=== PATIENT | female | born 1945 | race Caucasian/White ===

== ENCOUNTER 2017-08-30 19:00 | Emergency (ER) | payer MEDICARE, BC ==
--- NOTE | 2017-08-30 19:25 | EDM.PDOC ---
ED HPI GENERAL MEDICAL PROBLEM - General Chief Complaint: Skin Complaint Stated Complaint: PAIN LT MIDDLE FINGER Time Seen by Provider: 08/30/17 19:06 - History of Present Illness INITIAL COMMENTS - FREE TEXT/NARRATIVE: HISTORY AND PHYSICAL: History of present illness: Patient 72-year-old white female presents with a concern of intermittent pruritus over one month she's been seen in a [facility] urgent care and prescribed Keflex she has not taken Benadryl or any other antihistamines she denies tongue or lip Swelling nausea vomiting shortness breath or any other complaint This pruritus/ rash is somewhat diffuse. Review of systems: As per history of present illness and below otherwise all systems reviewed and negative. Past medical history: As per history of present illness and as reviewed below otherwise noncontributory. Surgical history: As per history of present illness and as reviewed below otherwise noncontributory. Social history: No reported history of drug or alcohol abuse. Family history: As per history of present illness and as reviewed below otherwise noncontributory. Physical exam: HEENT: Atraumatic, normocephalic, pupils reactive, negative for conjunctival pallor or scleral icterus, mucous membranes moist, throat clear, neck supple, nontender, trachea midline. Lungs: Clear to auscultation, breath sounds equal bilaterally, chest nontender. Heart: S1S2, regular, negative for clicks, rubs, or JVD. Abdomen: Soft, nondistended, nontender. Negative for masses or hepatosplenomegaly. Negative for costovertebral tenderness. Pelvis: Stable nontender. Genitourinary: Deferred. Rectal: Deferred. Extremities: Atraumatic, negative for cords or calf pain. Neurovascular unremarkable. Neuro: Awake, alert, oriented. Cranial nerves II through XII unremarkable. Cerebellum unremarkable. Motor and sensory unremarkable throughout. Exam nonfocal. Skin: Patient has very diffuse minor maculopapular type rash or small areas that appear urticarial patient is itching frequently Diagnostics: CBC and chem[] Therapeutics: None Impression: #1 pruritus/rash etiology to be determined Definitive disposition and diagnosis as appropriate pending reevaluation and review of above. ED ROS GENERAL - Review of Systems Review Of Systems: ROS reveals no pertinent complaints other than HPI. ED EXAM, SKIN/RASH Exam: See Below (See dictation) Course - Orders/Labs/Meds Orders: Active Orders 24 hr Category Date Time Status CBC WITH AUTO DIFF [HEME] Stat Lab 08/30/17 19:13 Ordered COMPREHENSIVE METABOLIC PN,CMP [CHEM] Stat Lab 08/30/17 19:16 Ordered Departure - Departure Time of Disposition: 19:24 Disposition: Home, Self-Care 01 Condition: Good Clinical Impression: Pruritus, Rash - Discharge Information Referrals: Cesia Dewitt DO [Primary Care Provider] - Additional Instructions: The following information is given to patients seen in the emergency department who are being discharged to home. This information is to outline your options for follow-up care. We provide all patients seen in our emergency department with a follow-up referral. The need for follow-up, as well as the timing and circumstances, are variable depending upon the specifics of your emergency department visit. If you don't have a primary care physician on staff, we will provide you with a referral. We always advise you to contact your personal physician following an emergency department visit to inform them of the circumstance of the visit and for follow-up with them and/or the need for any referrals to a consulting specialist. The emergency department will also refer you to a specialist when appropriate. This referral assures that you have the opportunity for followup care with a specialist. All of these measure are taken in an effort to provide you with optimal care, which includes your followup. Under all circumstances we always encourage you to contact your private physician who remains a resource for coordinating your care. When calling for followup care, please make the office aware that this follow-up is from your recent emergency room visit. If for any reason you are refused follow-up, please contact the [facility] emergency department at and asked to speak to the emergency department charge nurse. Benadryl Medrol as prescribed keep scheduled appointment tomorrow dermatology referral return as needed as discussed - My Orders Last 24 Hours: My Active Orders 08/30/17 19:13 CBC WITH AUTO DIFF [HEME] Stat 08/30/17 19:16 COMPREHENSIVE METABOLIC PN,CMP [CHEM] Stat - Assessment/Plan Last 24 Hours: My Active Orders 08/30/17 19:13 CBC WITH AUTO DIFF [HEME] Stat 08/30/17 19:16 COMPREHENSIVE METABOLIC PN,CMP [CHEM] Stat
[2017-08-30 19:53] LABS: CHLORIDE,CL 101 mmol/L (98-107); SODIUM,NA 133 mmol/L (136-145)
== END 2017-08-30 20:13 | disposition home or self-care (01) ==
LOC: MW.ED 19:00
DX: L29.9 Pruritus, unspecified (principal)
CPT/HCPCS: 36415; 80053; 85025; 99283

== ENCOUNTER 2018-07-17 06:15 | Day surgery (SDC) | payer MEDICARE, BC ==
[2018-07-16 13:36] LABS: CHLORIDE,CL 100 mmol/L (98-107); SODIUM,NA 136 mmol/L (136-145)
--- NOTE | 2018-07-17 07:55 | PCM.PREANE ---
Preanesthetic Assessment - Anesthesia/Transfusion/Family Hx Anesthesia History: Prior Anesthesia Without Reaction Family History of Anesthesia Reaction: No Transfusion History: No Prior Transfusion(s) - Review of Systems General: No Symptoms Pulmonary: No Symptoms Cardiovascular: No Symptoms Gastrointestinal: No Symptoms Neurological: No Symptoms - Physical Assessment NPO Status Date: 07/16/18 Height: 5 ft 3 in Weight: 72.575 kg ASA Class: 2 Mental Status: Other (doesnt know why she is here, thinks she may be having a colonoscopy, reports progerssive memory problems with agitation at home. Pt still has own controll over consents.After speaking with [place] she seems to understand what procedure she is having , the reasons for it, and the likely post op course.) - Lab Values: Laboratory Last Values WBC 3.75 K/uL (4.0-11.0) L 07/16/18 12:57 RBC 3.89 M/uL (4.30-5.90) L 07/16/18 12:57 Hgb 12.2 g/dL (12.0-16.0) 07/16/18 12:57 Hct 34.8 % (36.0-46.0) L 07/16/18 12:57 MCV 89.5 fL (80.0-98.0) 07/16/18 12:57 MCH 31.4 pg (27.0-32.0) 07/16/18 12:57 MCHC 35.1 g/dL (31.0-37.0) 07/16/18 12:57 RDW Std Deviation 41.1 fl (28.0-62.0) 07/16/18 12:57 RDW Coeff of Elvira 13 % (11.0-15.0) 07/16/18 12:57 Plt Count 278 K/uL (150-400) 07/16/18 12:57 MPV 8.70 fL (7.40-12.00) 07/16/18 12:57 Nucleated RBC % 0.0 /100WBC 07/16/18 12:57 Nucleated RBCs # 0 K/uL 07/16/18 12:57 Sodium 136 mmol/L (136-145) 07/16/18 12:57 Potassium 3.8 mmol/L (3.5-5.1) 07/16/18 12:57 Chloride 100 mmol/L (98-107) 07/16/18 12:57 Carbon Dioxide 27.8 mmol/L (21.0-32.0) 07/16/18 12:57 BUN 8 mg/dL (7.0-18.0) 07/16/18 12:57 Creatinine 0.7 mg/dL (0.6-1.0) 07/16/18 12:57 Est Cr Clr Drug Dosing 60.09 mL/min 07/16/18 12:57 Estimated GFR (MDRD) > 60.0 ml/min 07/16/18 12:57 Glucose 107 mg/dL (74-106) H 07/16/18 12:57 Calcium 9.5 mg/dL (8.5-10.1) 07/16/18 12:57 Blood Type A POSITIVE 07/16/18 12:57 Antibody Screen NEGATIVE 07/16/18 12:57 - Allergies Allergies/Adverse Reactions: Allergies Allergy/AdvReac Type Severity Reaction Status Date / Time No Known Allergies Allergy Verified 07/12/18 09:47 - Acknowledgements Anesthesia Type Planned: Spinal Pt an Appropriate Candidate for the Planned Anesthesia: Yes Alternatives and Risks of Anesthesia Discussed w Pt/Guardian: Yes Pt/Guardian Understands and Agrees with Anesthesia Plan: Yes Additional Comments: pt requests spinal PMH: early dementia, htn, hld, migraine, gerd, 1st degree ht block per problem list. PreAnesthesia Questionnaire HEENT History: Reports: Other (See Below) Other HEENT History: wears glasses Cardiovascular History: Reports: High Cholesterol, Hypertension Respiratory History: Reports: None Gastrointestinal History: Reports: GERD Genitourinary History: Reports: None [employer] SPECIALIST History: Reports: Musculoskeletal History: Reports: Fracture Other Musculoskeletal History: fx toe Neurological History: Reports: Migraines Psychiatric History: Reports: Depression Endocrine/Metabolic History: Reports: None Hematologic History: Reports: None Immunologic History: Reports: None Oncologic (Cancer) History: Reports: None Dermatologic History: Reports: None - Past Surgical History Head Surgeries/Procedures: Reports: None HEENT Surgical History: Reports: Oral Surgery Other HEENT Surgeries/Procedures: wisdom teeth extraction GI Surgical History: Reports: Colonoscopy Female Surgical History: Reports: Breast Biopsy, Tubal Ligation Neurological Surgical History: Reports: None Oncologic Surgical History: Reports: Biopsy of Breast - SUBSTANCE USE Smoking Status *Q: Former Smoker Recreational Drug Use History: No - HOME MEDS Home Medications: Home Meds Rosuvastatin [Crestor] 5 mg PO BEDTIME 08/30/17 [History] Olmesartan [Benicar] 20 mg PO DAILY 05/30/18 [History] hydroCHLOROthiazide [Hydrochlorothiazide] 25 mg PO DAILY 05/30/18 [History] Aspirin [Adult Aspirin] 81 mg PO DAILY 07/11/18 [History] Nitroglycerin 0.4 mg SL ASDIRECTED PRN 07/11/18 [History] [place]-3/DHA/Epa/Fish Oil [Fish Oil EC 1,000 MG Softgel] 1 tab PO DAILY 07/11/18 [History] Pantoprazole Sodium 40 mg PO DAILY 07/11/18 [History] Cholecalciferol (Vitamin D3) [Vitamin D3] 2,000 units PO DAILY 07/12/18 [History ] Desvenlafaxine [Desvenlafaxine ER] 50 mg PO DAILY 07/12/18 [History] Docusate Sodium [Stool Softener] 2 tab PO DAILY 07/12/18 [History] Keto 2 tab PO DAILY 07/12/18 [History] L.acidoph,Paracasei, B.lactis [Probiotic] 1 tab PO DAILY 07/12/18 [History] Multivits Min/Iron/FA/Herb#186 [Hair, Skin and Nails Caplet] 1 tab PO DAILY 11/23 [History] Unforgetables/Herbal 1 tab PO DAILY 07/12/18 [History] - CURRENT (IN HOUSE) MEDS Current Meds: Current Medications Lactated Ringer's (Ringers, Lactated) 1,000 mls @ 125 mls/hr IV ASDIRECTED MOHSEN
[2018-07-17] MEDS ORDERED: Dexamethasone 4 MG/ML 5 ML MDV ONE (07:58)
[2018-07-17] MEDS ORDERED: Ondansetron 4 MG/2 ML SDV ONE (07:58)
[2018-07-17] MEDS ORDERED: Ketorolac 30 MG/ML SDV ONE (07:58)
[2018-07-17] MEDS ORDERED: Lidocaine 2% 5 ML SDV ONE (07:58)
[2018-07-17] MEDS ORDERED: fentaNYL 100 MCG/2 ML SDV ONE ×2 (07:58→08:11)
[2018-07-17] MEDS ORDERED: Midazolam 1 MG/ML 2 ML SDV ONE (07:59)
[2018-07-17] MEDS: Lactated Ringers 1,000 ML IV SCH ×2 (08:00→16:53)
[2018-07-17] MEDS ORDERED: Propofol 200 MG/20 ML SDV ONE (08:01)
[2018-07-17] MEDS ORDERED: Acetaminophen/HYDROcodone 325-5 MG Tab PO PRN (08:40)
[2018-07-17] MEDS ORDERED: Morphine 4 MG/ML Syringe IVPUSH PRN ×2 (08:40→10:14)
[2018-07-17] MEDS ORDERED: Promethazine 25 MG/ML SDV IM PRN ×2 (08:40→10:14)
[2018-07-17] MEDS ORDERED: Albuterol 0.083% 2.5 MG/3 ML Neb Soln NEB PRN (08:40)
[2018-07-17] MEDS ORDERED: fentaNYL 100 MCG/2 ML SDV IVPUSH PRN (08:40)
[2018-07-17] MEDS ORDERED: Scopolamine 1.5 MG Transdermal Patch TRDERM PRN (08:40)
[2018-07-17] MEDS ORDERED: Labetalol 100 MG/20 ML MDV IVPUSH PRN (08:40)
[2018-07-17] MEDS ORDERED: Naloxone 0.4 MG/ML Syringe IVPUSH PRN (08:40)
[2018-07-17] MEDS ORDERED: Ondansetron 4 MG/2 ML SDV IVPUSH PRN ×2 (08:40→10:14)
[2018-07-17] MEDS ORDERED: Atropine 0.1 MG/ML 10 ML Syringe IVPUSH PRN (08:40)
[2018-07-17] MEDS ORDERED: Metoclopramide 10 MG/2 ML SDV IVPUSH PRN (08:40)
[2018-07-17] MEDS ORDERED: Meperidine PF 25 MG/ML Syringe IVPUSH PRN (08:40)
[2018-07-17] MEDS ORDERED: hydrALAZINE 20 MG/ML SDV IVPUSH PRN ×2 (08:40)
[2018-07-17] MEDS ORDERED: HYDROmorphone 2 MG/ML SDV IVPUSH PRN (08:40)
[2018-07-17] MEDS ORDERED: Meperidine PF 25 MG/ML Syringe IV PRN (08:40)
[2018-07-17] MEDS ORDERED: Fluorescein 5 ML Vial ONE (09:34)
[2018-07-17] MEDS ORDERED: Ketorolac 30 MG/ML SDV IVPUSH ONE (10:14)
[2018-07-17] MEDS ORDERED: Acetaminophen 325 MG Tab PO PRN (10:14)
--- NOTE | 2018-07-17 10:14 | PCM.OPNOTE ---
- General Post-Op/Procedure Note Date of Surgery/Procedure: 07/17/18 Operative Procedure(s): TVH anterior and posterior colporrhaphy, perineorrhaphy , De Souza Culdoplasty, cystoscopy Findings: 3rd degree uterine prolapse, 3rd degree cystocele, gaping introitus, copious flow bright green urine on cystoscopy after fluroscein, normal appearing tubes and ovaries Pre Op Diagnosis: Incomplete uterovaginal prolapse Post-Op Diagnosis: Same Anesthesia Technique: Spinal Primary Surgeon: Bryanna Gutiérrez Secondary Surgeon: Azucena Rick (second assist Azucena Mcfadden, MS4) Anesthesia Provider: Ti Whittington Shirt Marker: Marc Claudio Pathology: uterus, vaginal mucosa Output, Urine Amount: 250 EBL in mLs: 100 Drain/Tube Comments:: vaginal packing in place Complications: None Known Condition: Good
--- NOTE | 2018-07-17 11:10 | PCM.POSTAN ---
POST ANESTHESIA ASSESSMENT - MENTAL STATUS Mental Status: Alert, Oriented - RESPIRATORY Respiratory Status: Respiratory Rate WNL, Airway Patent, O2 Saturation Stable - CARDIOVASCULAR CV Status: Pulse Rate WNL, Blood Pressure Stable - GASTROINTESTINAL GI Status: No Symptoms - POST OP HYDRATION Hydration Status: Adequate & Stable
[2018-07-17] MEDS: oxyCODONE 5 MG Tab PO PRN ×2 (12:26→20:07)
[2018-07-17] MEDS: Pantoprazole 40 MG Tab.CR PO SCH (12:27)
[2018-07-17] MEDS: Olmesartan 20 MG Tab PO SCH (12:27)
[2018-07-17] MEDS: DESVENLAFAXINE 50 MG PO SCH (12:31)
[2018-07-17] MEDS: Ketorolac 30 MG/ML SDV IVPUSH SCH ×3 (12:32→23:26)
--- NOTE | 2018-07-17 19:03 | OR ---
SURGEON: Bryanna Gutiérrez M.D. DATE OF PROCEDURE: 07/17/2018 PREOPERATIVE DIAGNOSIS: Incomplete uterovaginal prolapse with urinary retention. POSTOPERATIVE DIAGNOSIS: Incomplete uterovaginal prolapse with urinary retention. PROCEDURES: Total vaginal hysterectomy, anterior and posterior colporrhaphy with De Souza culdoplasty, perineorrhaphy, and cystoscopy. CRM SPECIALIST: Azucena Rick M.D. SECOND CRM SPECIALIST: Peri Hassan, MS4. ANESTHESIA: Spinal. ESTIMATED BLOOD LOSS: Less than 100 mL. FINDINGS: Third-degree uterine prolapse, third-degree cystocele, second-degree rectocele, gaping perineum on cystoscopy. There was no evidence of any trauma to the bladder mucosa. Bilateral ureters showed copious flow of bright green urine after fluorescein dye was given. COMPLICATIONS: None known. DISPOSITION: Stable to recovery. BRIEF HISTORY: This is a 72-year-old female, she presents with symptoms of difficulty initiating voiding, pelvic pressure, feeling a bulge at the opening of her vagina which is very uncomfortable for her. She was evaluated initially, found to have urinary retention up to 400 mL. She was evaluated with cystometry with reduction of the cystocele. This did reveal stress incontinence. After extensive discussion, however, we decided that we would not proceed with a mid urethral sling at the time of prolapse repair to see how she does with urinary emptying as she has in the past had retention. She has therefore consented for a total vaginal hysterectomy, anterior and posterior colporrhaphy, perineorrhaphy, possible vaginal vault suspension, and cystoscopy with risks discussed including bleeding, infection, injury to bowel, bladder, blood vessels, ureters, or other organs, risk of thromboembolic event, risk of anesthesia. Understanding all these risks, she does desire to proceed. She was previously offered and declined a pessary as well. DESCRIPTION OF PROCEDURE: With the patient in dorsal lithotomy position, under adequate general endotracheal anesthesia, the perineum and vagina were prepped with Betadine and draped in usual fashion for vaginal surgery. Biswas catheter had been placed. SCDs were in place. She received 2 g of Ancef IV. After an appropriate time- out was held, examination revealed a third-degree uterine prolapse, third-degree cystocele, and gaping introitus. A speculum was placed posteriorly and right angle retractor was placed anteriorly. The cervix was grasped with a Phan tenaculum, circumscribed with electrocautery. The vaginal mucosa was pushed away from the cervix and the anterior cul-de-sac was entered sharply. A right- angle retractor was placed anteriorly, the posterior cul-de-sac was entered sharply. A Juan Carlos Auvard speculum was placed posteriorly. The uterosacral ligaments were doubly clamped, cut, and ligated using a Manny ligature followed by simple ligature of 2-0 Polysorb. An additional pedicle was taken over the cardinal ligament complex using a Manny clamp, cutting and ligating using Rajan ligature of 2-0 Polysorb. The remaining utero-ovarian ligament was then cross clamped on the right and left, cut and ligated using a free tie followed by a Rajan ligature of 2-0 Polysorb. The uterus was removed vaginally. The tubes and ovaries on both sides appeared normal. She did desire to retain her tubes and ovaries. The pedicles were inspected and there was a small area of bleeding from the vascular pedicle on the left. This was controlled using a Manny clamp and an additional Rajan ligature of 2-0 Polysorb. The pedicles all being hemostatic. The retained uterosacral ligaments were ligated to the vaginal apices bilaterally. There was actually excellent support of the uterosacral ligaments bilaterally and therefore decision was made not to proceed with a vaginal vault suspension. The anterior vaginal cuff was then grasped with Allis clamps. Hydrodissection was performed. Metzenbaum scissors were used to make a midline incision from the cuff to the level of 2.5 cm cephalad from the urethral meatus. The muscularis layer was then from the overlying vaginal mucosa and reapproximated in the midline using a running lock suture of 0 Polysorb. The vaginal mucosa was slightly trimmed. The muscularis was reapproximated in the midline using multiple interrupted mattress sutures of 2-0 Polysorb. The muscularis layer was then trimmed and reapproximated using a running lock suture of 0 Polysorb. The right angle retractor was again placed anteriorly. Andrew clamps were placed at the introitus and a triangular incision was made using a scalpel into the perineal body and the skin was removed. Hydrodissection was performed posteriorly between the vaginal mucosa, which was then opened in the midline. The muscularis layer was and reapproximated using multiple interrupted mattress sutures of 2-0 Polysorb. The vaginal mucosa was slightly trimmed and closed with a running lock suture of 0 Polysorb, extending down to the vaginal introitus and then bringing the suture to the perineum where the deep tissue was reapproximated using a running suture of the 0 Polysorb. 3-0 Monocryl was then utilized to reapproximate the superficial perineal tissue and a subcuticular suture for the skin. The retained cuff closure suture was then utilized to complete the closure of the cuff anteriorly posteriorly. With this, there was excellent support of the cuff of the anterior and the posterior vagina. Rectal exam was performed, and there was no evidence of any trauma or suture in the rectal mucosa and cystoscopy was performed after IV fluorescein and Lasix had been given. There was copious flow from bilateral ureteral orifices. No evidence of any trauma to the bladder mucosa. The Biswas catheter was replaced. The vagina was packed. Final sponge, needle, and instrument counts were reported as correct. There were no known complications. The patient was transferred to recovery in good condition. BETH RAZO /[id number]
[2018-07-18] MEDS: Lactated Ringers 1,000 ML IV SCH (01:00)
[2018-07-18] MEDS: Ketorolac 30 MG/ML SDV IVPUSH SCH ×2 (03:55→09:41)
[2018-07-18 06:12] LABS: CHLORIDE,CL 102 mmol/L (98-107); SODIUM,NA 137 mmol/L (136-145)
--- NOTE | 2018-07-18 08:13 | PCM.SURGPN ---
- General Info Date of Service: 07/18/18 Date of Surgery/Procedure: 07/17/18 POD#: 1 Post-Op Diagnosis: incomplete uterovaginal prolapse Functional Status: Reports: Pain Controlled (currently denies pain, received a single dose of morphine last night, along with oxycodone and scheduled ketorolac ), Tolerating Diet. Denies: Urinating (catheter just removed) - Review of Systems General: Reports: No Symptoms HEENT: Reports: No Symptoms Pulmonary: Reports: Cough (dry cough ongoing precedes surgery) Cardiovascular: Reports: No Symptoms Gastrointestinal: Reports: No Symptoms Genitourinary: Reports: No Symptoms Musculoskeletal: Reports: No Symptoms Skin: Reports: No Symptoms Neurological: Reports: No Symptoms Psychiatric: Reports: No Symptoms - Patient Data Vitals - Most Recent: Last Vital Signs Temp 36.4 C 07/18/18 04:00 Pulse 75 07/18/18 04:00 Resp 16 07/18/18 04:00 BP 137/69 07/18/18 04:00 Pulse Ox 96 07/18/18 04:00 Weight - Most Recent: 72.575 kg I&O - Last 24 Hours: Intake & Output 07/17/18 07/18/18 07/18/18 22:59 06:59 14:59 Intake Total 650 620 Output Total 500 700 Balance 150 -80 Lab Results Last 24 Hrs: Laboratory Results - last 24 hr 07/18/18 07/18/18 Range/Units 05:08 05:08 WBC 7.69 (4.0-11.0) K/uL RBC 3.43 L (4.30-5.90) M/uL Hgb 10.7 L (12.0-16.0) g/dL Hct 30.6 L (36.0-46.0) % MCV 89.2 (80.0-98.0) fL MCH 31.2 (27.0-32.0) pg MCHC 35.0 (31.0-37.0) g/dL RDW Std Deviation 40.9 (28.0-62.0) fl RDW Coeff of Elvira 13 (11.0-15.0) % Plt Count 253 (150-400) K/uL MPV 8.90 (7.40-12.00) fL Neut % (Auto) 74.2 (48.0-80.0) % Lymph % (Auto) 18.2 (16.0-40.0) % Mower % (Auto) 6.4 (0.0-15.0) % Eos % (Auto) 0.9 (0.0-7.0) % Baso % (Auto) 0.3 (0.0-1.5) % Neut # (Auto) 5.7 (1.4-5.7) K/uL Lymph # (Auto) 1.4 (0.6-2.4) K/uL Mower # (Auto) 0.5 (0.0-0.8) K/uL Eos # (Auto) 0.1 (0.0-0.7) K/uL Baso # (Auto) 0.0 (0.0-0.1) K/uL Nucleated RBC % 0.0 /100WBC Nucleated RBCs # 0 K/uL Sodium 137 (136-145) mmol/L Potassium 3.3 L (3.5-5.1) mmol/L Chloride 102 (98-107) mmol/L Carbon Dioxide 27.2 (21.0-32.0) mmol/L BUN 8 (7.0-18.0) mg/dL Creatinine 0.6 (0.6-1.0) mg/dL Est Cr Clr Drug Dosing 70.11 mL/min Estimated GFR (MDRD) > 60.0 ml/min Glucose 118 H (74-106) mg/dL Calcium 9.0 (8.5-10.1) mg/dL Med Orders - Current: Current Medications Acetaminophen (Tylenol) 650 mg PO Q4H PRN PRN Reason: Pain (mild 1-3) Last Admin: 07/17/18 13:15 Dose: 650 mg Hydrochlorothiazide (Hydrochlorothiazide) 25 mg PO DAILY [facility] Lactated Ringer's (Ringers, Lactated) 1,000 mls @ 125 mls/hr IV ASDIRECTED [facility] Last Admin: 07/18/18 01:00 Dose: 125 mls/hr Ketorolac Tromethamine (Toradol) 15 mg IVPUSH Q6H [facility] Stop: 07/22/18 10:15 Last Admin: 07/18/18 03:55 Dose: 15 mg Morphine Sulfate (Morphine Sulfate) 4 mg IV Q2H PRN PRN Reason: Pain (severe 7-10) Last Admin: 07/17/18 21:13 Dose: 4 mg Olmesartan (Benicar) 20 mg PO DAILY [facility] Last Admin: 07/17/18 12:27 Dose: 20 mg Ondansetron HCl (Zofran) 4 mg IVPUSH Q6H PRN PRN Reason: Nausea/Vomiting Oxycodone HCl (Oxycodone) 5 mg PO Q4H PRN PRN Reason: Pain (moderate 4-6) Last Admin: 07/17/18 20:07 Dose: 5 mg Pantoprazole Sodium (Protonix) 40 mg PO DAILY [facility] Last Admin: 07/17/18 12:27 Dose: 40 mg [Desvenlafaxine Er] (50 Mg) 1 each PO DAILY [facility] Last Admin: 07/17/18 12:31 Dose: Not Given Promethazine HCl (Phenergan) 25 mg IM Q6H PRN PRN Reason: Nausea/Vomiting Scopolamine (Transderm-Scop) 1.5 mg TRDERM Q72H PRN PRN Reason: Nausea Discontinued Medications Hydrocodone Bitart/Acetaminophen ([place] 325-5 Mg) 2 tab PO Q6H PRN PRN Reason: Pain (moderate 4-6) Albuterol (Proventil Neb Soln) 2.5 mg NEB Q6HRRT PRN PRN Reason: Wheezing Atropine Sulfate (Atropine 0.1 Mg/Ml) 0.4 mg IVPUSH Q5M PRN PRN Reason: Bradycardia Dexamethasone (Dexamethasone) Confirm Administered Dose 20 mg .ROUTE .STK-MED ONE Stop: 07/17/18 07:59 Fentanyl (Sublimaze) Confirm Administered Dose 100 mcg .ROUTE .STK-MED ONE Stop: 07/17/18 07:59 Fentanyl (Sublimaze) Confirm Administered Dose 100 mcg .ROUTE .STK-MED ONE Stop: 07/17/18 08:12 Fentanyl (Sublimaze) 50 mcg IVPUSH Q5M PRN PRN Reason: Pain (severe 7-10) Stop: 07/18/18 08:41 Fluorescein Sodium (Ak-Fluor) Confirm Administered Dose 5 ml .ROUTE .STK-MED ONE Stop: 07/17/18 09:35 Hydralazine HCl (Apresoline) 5 mg IVPUSH ONETIME PRN PRN Reason: Hypertension Hydralazine HCl (Apresoline) 10 mg IVPUSH ONETIME PRN PRN Reason: Hypertension Hydromorphone HCl (Dilaudid) 0.25 mg IVPUSH Q10M PRN PRN Reason: Pain (severe 7-10) Stop: 07/18/18 08:41 Ketorolac Tromethamine (Toradol) Confirm Administered Dose 30 mg .ROUTE .STK- MED ONE Stop: 07/17/18 07:59 Ketorolac Tromethamine (Toradol) 30 mg IVPUSH ONETIME ONE Stop: 07/17/18 10:15 Last Admin: 07/17/18 12:04 Dose: Not Given Labetalol HCl (Normodyne) 10 mg IVPUSH Q6H PRN PRN Reason: Hypertension Stop: 07/18/18 08:41 Lidocaine (Xylocaine-Mpf 2%) Confirm Administered Dose 5 ml .ROUTE .STK-MED ONE Stop: 07/17/18 07:59 Meperidine HCl (Demerol) 12.5 mg IVPUSH ONETIME PRN PRN Reason: Shivering Meperidine HCl (Demerol) 25 mg IV ONETIME PRN PRN Reason: Shivering Metoclopramide HCl (Reglan) 10 mg IVPUSH ONETIME PRN PRN Reason: Nausea Midazolam HCl (Versed 1 Mg/Ml) Confirm Administered Dose 2 mg .ROUTE .STK-MED ONE Stop: 07/17/18 08:00 Morphine Sulfate (Morphine) 4 mg IVPUSH Q10M PRN PRN Reason: Pain (severe 7-10) Stop: 07/18/18 08:41 Morphine Sulfate (Morphine) 4 mg IVPUSH Q2H PRN PRN Reason: Pain (severe 7-10) Naloxone HCl (Narcan) 0.1 mg IVPUSH ONETIME PRN PRN Reason: Respiratory Depression Ondansetron HCl (Zofran) Confirm Administered Dose 8 mg .ROUTE .STK-MED ONE Stop: 07/17/18 07:59 Ondansetron HCl (Zofran) 8 mg IVPUSH ONETIME PRN PRN Reason: Nausea Promethazine HCl (Phenergan) 12.5 mg IM ONETIME PRN PRN Reason: Nausea Propofol (Diprivan 20 Ml) Confirm Administered Dose 600 mg .ROUTE .STK-MED ONE Stop: 07/17/18 08:02 - Exam Wound/Incisions: Other (vaginal packing removed, minimal blood) General: Alert, Oriented Lungs: Clear to Auscultation, Normal Respiratory Effort Cardiovascular: Regular Rate, Regular Rhythm GI/Abdominal Exam: Normal Bowel Sounds, Soft, Non-Tender, No Organomegaly, No Distention, No Abnormal Bruit, No Mass, Pelvis Stable Extremities: Normal Inspection, Normal Range of Motion, Non-Tender, No Pedal Edema, Normal Capillary Refill Psy/Mental Status: Alert - Problem List & Annotations (1) Incomplete uterovaginal prolapse SNOMED Code(s): 811830154 Code(s): N81.2 - INCOMPLETE UTEROVAGINAL PROLAPSE Status: Acute Current Visit: Yes (2) Cough SNOMED Code(s): 46917024 Code(s): R05 - COUGH Status: Acute Current Visit: Yes (3) Hypertension SNOMED Code(s): 31796422 Code(s): I10 - ESSENTIAL (PRIMARY) HYPERTENSION Status: Acute Current Visit: Yes Qualifiers: Hypertension type: essential hypertension Qualified Code(s): I10 - Essential (primary) hypertension - Problem List Review Problem List Initiated/Reviewed/Updated: Yes - My Orders Last 24 Hours: Active Orders 24 hr Category Date Time Status Patient Status [ADT] Routine ADT 07/17/18 10:15 Active Antiembolic Devices [RC] PER UNIT ROUTINE Care 07/17/18 10:16 Active Notify Provider Intake and Out [RC] ASDIRECTED Care 07/17/18 10:15 Active Notify Provider Vital Signs [RC] ASDIRECTED Care 07/17/18 10:15 Active Oxygen Therapy [RC] ASDIRECTED Care 07/17/18 10:15 Active RT Incentive Spirometry [RC] Q2HWA Care 07/17/18 10:15 Active Up With Assistance [RC] PER UNIT ROUTINE Care 07/17/18 10:15 Active Up ad Dona [RC] PER UNIT ROUTINE Care 07/17/18 10:15 Active Urinary Catheter Removal [RC] Per Unit Routine Care 07/17/18 10:15 Active Regular Diet [DIET] Diet 07/17/18 Lunch Active Acetaminophen [Tylenol] Med 07/17/18 10:14 Active 650 mg PO Q4H PRN Ketorolac [Toradol] Med 07/17/18 10:15 Active 15 mg IVPUSH Q6H Morphine Sulfate Med 07/17/18 13:09 Active 4 mg IV Q2H PRN Olmesartan [Benicar] Med 07/17/18 10:30 Active 20 mg PO DAILY Ondansetron [Zofran] Med 07/17/18 10:14 Active 4 mg IVPUSH Q6H PRN Pantoprazole [ProTONIX] Med 07/17/18 10:30 Active 40 mg PO DAILY Patient's Own Medication [Ptom] Med 07/17/18 10:30 Active 1 each PO DAILY Promethazine [Phenergan] Med 07/17/18 10:14 Active 25 mg IM Q6H PRN Scopolamine [Transderm-Scop] Med 07/17/18 08:40 Active 1.5 mg TRDERM Q72H PRN hydroCHLOROthiazide Med 07/18/18 09:00 Active 25 mg PO DAILY oxyCODONE Med 07/17/18 10:14 Active 5 mg PO Q4H PRN Peripheral IV Discontinue [OM.PC] Routine Oth 07/17/18 10:15 Ordered Remove Vaginal Packing [OM.PC] Per Unit Routine Oth 07/17/18 10:16 Ordered Sequential Compression Device [OM.PC] Per Unit Routine Oth 07/17/18 10:15 Ordered Resuscitation Status Routine Resus Stat 07/17/18 10:14 Ordered Medication Orders Acetaminophen (Tylenol) 650 mg PO Q4H PRN PRN Reason: Pain (mild 1-3) Last Admin: 07/17/18 13:15 Dose: 650 mg Hydrochlorothiazide (Hydrochlorothiazide) 25 mg PO DAILY [facility] Lactated Ringer's (Ringers, Lactated) 1,000 mls @ 125 mls/hr IV ASDIRECTED [facility] Last Admin: 07/18/18 01:00 Dose: 125 mls/hr Infusion: 07/18/18 00:53 Dose: 125 mls/hr Admin: 07/17/18 16:53 Dose: 125 mls/hr Infusion: 07/17/18 16:00 Dose: 125 mls/hr Admin: 07/17/18 08:00 Dose: 125 mls/hr Ketorolac Tromethamine (Toradol) 15 mg IVPUSH Q6H [facility] Stop: 07/22/18 10:15 Last Admin: 07/18/18 03:55 Dose: 15 mg Admin: 07/17/18 23:26 Dose: 15 mg Admin: 07/17/18 15:25 Dose: 15 mg Admin: 07/17/18 12:32 Dose: Morphine Sulfate (Morphine Sulfate) 4 mg IV Q2H PRN PRN Reason: Pain (severe 7-10) Last Admin: 07/17/18 21:13 Dose: 4 mg Admin: 07/17/18 13:15 Dose: 4 mg Olmesartan (Benicar) 20 mg PO DAILY [facility] Last Admin: 07/17/18 12:27 Dose: 20 mg Ondansetron HCl (Zofran) 4 mg IVPUSH Q6H PRN PRN Reason: Nausea/Vomiting Oxycodone HCl (Oxycodone) 5 mg PO Q4H PRN PRN Reason: Pain (moderate 4-6) Last Admin: 07/17/18 20:07 Dose: 5 mg Admin: 07/17/18 12:26 Dose: 5 mg Pantoprazole Sodium (Protonix) 40 mg PO DAILY [facility] Last Admin: 07/17/18 12:27 Dose: 40 mg [Desvenlafaxine Er] (50 Mg) 1 each PO DAILY [facility] Last Admin: 07/17/18 12:31 Dose: Not Given Promethazine HCl (Phenergan) 25 mg IM Q6H PRN PRN Reason: Nausea/Vomiting Scopolamine (Transderm-Scop) 1.5 mg TRDERM Q72H PRN PRN Reason: Nausea - Assessment Assessment (Free Text/Narrative):: POD#1 after TVH, anterior and posterior colporrhapy and perineorrhaphy. Stable. Pain well controlled, packing removed with scant blood. Vitals are stable and labs appropriate. She continues to have dry cough as she did prior to the surgery - Plan Plan (Free Text/Narrative):: dismiss to home after she is able to void. Discussed lifting precautions. Recommend appointment with her PCP to see if cough may be side effect of medication or other etiology. Discharge instructions reviewed.
[2018-07-18] MEDS: Olmesartan 20 MG Tab PO SCH (08:52)
[2018-07-18] MEDS: DESVENLAFAXINE 50 MG PO SCH (08:53)
[2018-07-18] MEDS: Pantoprazole 40 MG Tab.CR PO SCH (08:53)
[2018-07-18] MEDS ORDERED: Hydrochlorothiazide 25 MG Tab PO SCH (09:00)
[2018-07-18] MEDS: oxyCODONE 5 MG Tab PO PRN (09:42)
--- NOTE | 2018-07-18 10:30 | PCM48HPAN ---
Post Anesthesia Note - EVALUATION WITHIN 48HRS OF ANESTHETIC Vital Signs in Normal Range: Yes Patient Participated in Evaluation: Yes Respiratory Function Stable: Yes Airway Patent: Yes Cardiovascular Function Stable: Yes Hydration Status Stable: Yes Pain Control Satisfactory: Yes Nausea and Vomiting Control Satisfactory: Yes Mental Status Recovered: Yes Resp Rate: 18 Blood Pressure: 119/60 - COMMENTS/OBSERVATIONS Free Text/Narrative:: Doing well without complaints. Sitting up in bed eating and drinking [employer].
== END 2018-07-18 11:10 | disposition home or self-care (01) ==
LOC: MW.SDS 06:15 → UNDOADMOB 11:14 → MW.MS 11:14 → UNDODISOB 07-18 11:10 → MW.SDS 07-18 11:10
PROVIDERS: ATTEND Obstetrics & Gynecology
DX: N81.3 Complete uterovaginal prolapse (principal); D25.9 Leiomyoma of uterus, unspecified; N76.0 Acute vaginitis; I10 Essential (primary) hypertension; K21.9 Gastro-esophageal reflux disease without esophagitis; E78.00 Pure hypercholesterolemia, unspecified; F32.9 Major depressive disorder, single episode, unspecified; Z87.891 Personal history of nicotine dependence; Z98.51 Tubal ligation status; Z79.82 Long term (current) use of aspirin; Z79.899 Other long term (current) drug therapy
CPT/HCPCS: 36415; 57260; 58260; 80048; 85025; 85027; 86850; 86900; 86901; 88309; A9270; J1100; J1885; J2001; J2270; J2405; J2704; J3010; J7120; J2250

== ENCOUNTER 2018-09-30 11:56 | Emergency (ER) | payer MEDICARE, BC ==
[2018-09-30] MEDS ORDERED: Aspirin 81 MG Tab.Chew PO ONE (11:59)
[2018-09-30] MEDS ORDERED: Sodium Chloride 0.9% 10 ML Syringe FLUSH PRN ×2 (11:59→12:22)
[2018-09-30] MEDS ORDERED: Sodium Chloride 0.9% 2.5 ML Syringe FLUSH PRN ×2 (11:59→12:22)
[2018-09-30] MEDS ORDERED: Sodium Chloride 0.9% 1,000 ML IV ONE (12:00)
[2018-09-30] MEDS ORDERED: Nitroglycerin 0.4 MG Tab.SL SL PRN (12:06)
--- NOTE | 2018-09-30 12:07 | EDM.PDOC ---
ED HPI GENERAL MEDICAL PROBLEM - General Stated Complaint: SPOKE TO NURSE Time Seen by Provider: 09/30/18 12:02 Source of Information: Reports: Patient History Limitations: Reports: No Limitations - History of Present Illness INITIAL COMMENTS - FREE TEXT/NARRATIVE: HISTORY AND PHYSICAL: History of present illness: Patient is a 73-year-old female who presents to the emergency room with complaints of midsternal chest pain, weakness, nausea and feeling diaphoretic. She states her symptoms occurred approximately 45 minutes prior to arrival. When symptoms started she stated she was getting ready to attend a graduation. She is not doing any physically strenuous activity. She states that nothing improves or makes the symptoms worse. She states she feels diaphoretic and has generalized weakness. Recently did have a full physical done or a minor procedure approximately 6 weeks ago, states that everything was normal at that time. She had a total vaginal hysterectomy. No postoperative complications. Patient denies any fever, chills, headache, change in vision, syncope or near syncope. Denies any back pain, shortness of breath or cough. Denies any abdominal pain, diarrhea, constipation or dysuria. Has not noted any blood in urine or stool. Patient has been eating and drinking appropriately. Patient has a personal history of elevated cholesterol, hypertension, depression and migraines. States that she does have a family history of heart disease including RI. Previous history of tobacco use, currently is not a smoker over the past several years. Review of systems: As per history of present illness and below otherwise all systems reviewed and negative. Past medical history: As per history of present illness and as reviewed below otherwise noncontributory. Surgical history: As per history of present illness and as reviewed below otherwise noncontributory. Social history: See social history for further information Family history: As per history of present illness and as reviewed below otherwise noncontributory. Physical exam: General: Well-developed and well-nourished 73-year-old female. Alert and oriented. Nontoxic appearing but does appear fatigued. HEENT: Atraumatic, normocephalic, pupils equal and reactive bilaterally, negative for conjunctival pallor or scleral icterus, mucous membranes moist, TMs normal bilaterally, throat clear, neck supple, nontender, trachea midline. No drooling or trismus noted. No meningeal signs. No hot potato voice noted. Lungs: Clear to auscultation, breath sounds equal bilaterally, chest nontender. Heart: S1S2, regular rate and rhythm without overt murmur Abdomen: Soft, nondistended, nontender. Negative for masses or hepatosplenomegaly. Negative for costovertebral tenderness. Pelvis: Stable nontender. Genitourinary: Deferred. Rectal: Deferred. Skin: Intact, warm, slightly diaphoretic. No lesions or rashes noted. Extremities: Atraumatic, moves all extremities per self without difficulty or deficits, negative for cords or calf pain. Neurovascular unremarkable. Neuro: Awake, alert, oriented. Cranial nerves II through XII unremarkable. Cerebellum unremarkable. Motor and sensory unremarkable throughout. Exam nonfocal. Notes: Dr Hicks directly involved in this case. EKG shows an acute RI. Lab results pending. Dr Turner, cardiology in [facility], was consulted on this case. He states that the patient should receive TPA, heparin and Plavix. Patient will be transferred via flight. Patient and family members are aware of diagnostics and the need for transfer. They're agreeable to plan of care. Vital signs remain stable. Patient will be transferred via [place] flight crew. TNKase given per Dr Hicks. Staff remains at bedside. Repeat EKG completed. Diagnostics: CBC, CMP, troponin, EKG, chest x-ray, UA Therapeutics: IV 2, aspirin, morphine, Zofran, IV fluids, TNKase, heparin and Plavix Impression: Acute RI Plan: Transfer to [facility] via flight Definitive disposition and diagnosis as appropriate pending reevaluation and review of above. Onset: Today Duration: Minutes: Location: Reports: Chest, Generalized Quality: Reports: Pressure Middle Chest Pain Score (Numeric/FACES): 8 - Related Data Allergies Allergy/AdvReac Type Severity Reaction Status Date / Time No Known Allergies Allergy Verified 07/12/18 09:47 Home Meds: Home Meds Rosuvastatin [Crestor] 5 mg PO BEDTIME 08/30/17 [History] Olmesartan [Benicar] 20 mg PO DAILY 05/30/18 [History] hydroCHLOROthiazide [Hydrochlorothiazide] 25 mg PO DAILY 05/30/18 [History] Aspirin [Adult Aspirin] 81 mg PO DAILY 07/11/18 [History] Nitroglycerin 0.4 mg SL ASDIRECTED PRN 07/11/18 [History] [place]-3/DHA/Epa/Fish Oil [Fish Oil EC 1,000 MG Softgel] 1 tab PO DAILY 07/11/18 [History] Pantoprazole Sodium 40 mg PO DAILY 07/11/18 [History] Cholecalciferol (Vitamin D3) [Vitamin D3] 2,000 units PO DAILY 07/12/18 [History ] Desvenlafaxine [Desvenlafaxine ER] 50 mg PO DAILY 07/12/18 [History] Docusate Sodium [Stool Softener] 2 tab PO DAILY 07/12/18 [History] Keto 2 tab PO DAILY 07/12/18 [History] L.acidoph,Paracasei, B.lactis [Probiotic] 1 tab PO DAILY 07/12/18 [History] Multivit-Min/Iron/Folic/Pyk335 [Hair, Skin and Nails Caplet] 1 tab PO DAILY 11/23 [History] Unforgetables/Herbal 1 tab PO DAILY 07/12/18 [History] Acetaminophen [Tylenol] 650 mg PO Q4H PRN tablet 07/18/18 [Rx] oxyCODONE 5 mg PO Q6H PRN #20 tablet 07/18/18 [Rx] Past Medical History HEENT History: Reports: Other (See Below) Other HEENT History: wears glasses Cardiovascular History: Reports: High Cholesterol, Hypertension Respiratory History: Reports: None Gastrointestinal History: Reports: GERD Genitourinary History: Reports: None 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: Musculoskeletal History: Reports: Fracture Other Musculoskeletal History: fx toe Neurological History: Reports: Migraines Psychiatric History: Reports: Depression Endocrine/Metabolic History: Reports: None Hematologic History: Reports: None Immunologic History: Reports: None Oncologic (Cancer) History: Reports: None Dermatologic History: Reports: None - Past Surgical History Head Surgeries/Procedures: Reports: None HEENT Surgical History: Reports: Oral Surgery Other HEENT Surgeries/Procedures: wisdom teeth extraction GI Surgical History: Reports: Colonoscopy Female Surgical History: Reports: Breast Biopsy, Tubal Ligation Neurological Surgical History: Reports: None Oncologic Surgical History: Reports: Biopsy of Breast Social & Family History - Family History Family Medical History: Noncontributory - Caffeine Use Caffeine Use: Reports: None ED ROS GENERAL - Review of Systems Review Of Systems: ROS reveals no pertinent complaints other than HPI. ED EXAM, GENERAL - Physical Exam Exam: See Below (See dictation) Course - Vital Signs Last Recorded V/S: Last Vital Signs Temp 98.1 F 09/30/18 12:11 Pulse 64 09/30/18 12:11 Resp 18 09/30/18 12:11 BP 151/84 H 09/30/18 12:11 Pulse Ox 96 09/30/18 12:11 - Orders/Labs/Meds Orders: Active Orders 24 hr Category Date Time Status Cardiac Monitoring [RC] . DIRECTED Care 09/30/18 12:23 Active EKG Documentation Completion [RC] STAT Care 09/30/18 11:59 Active EKG Documentation Completion [RC] STAT Care 09/30/18 12:23 Active Chest 1V Frontal [CR] Stat Exams 09/30/18 11:59 Ordered COMPREHENSIVE METABOLIC PN,CMP [CHEM] Stat Lab 09/30/18 12:00 Received TROPONIN I [CHEM] Stat Lab 09/30/18 12:00 Received UA RFX WEST AND CULT IF INDIC [URIN] Stat Lab 09/30/18 12:00 Ordered Heparin Sod,Pork In 0.45% Nacl [Heparin-1/2Ns 25,000 Med 09/30/18 12:30 Active Units/500] 25,000 unit in 500 ml IV TITRATE Nitroglycerin/D5W [Nitroglycerin 25 MG/D5W 250 ML] Med 09/30/18 12:15 Active 25 mg in 250 ml IV TITRATE Sodium Chloride 0.9% [Normal Saline] 1,000 ml Med 09/30/18 12:00 Active IV STAT Sodium Chloride 0.9% [Saline Flush] Med 09/30/18 11:59 Active 10 ml FLUSH ASDIRECTED PRN Sodium Chloride 0.9% [Saline Flush] Med 09/30/18 12:22 Active 10 ml FLUSH ASDIRECTED PRN Sodium Chloride 0.9% [Saline Flush] Med 09/30/18 11:59 Active 2.5 ml FLUSH ASDIRECTED PRN Sodium Chloride 0.9% [Saline Flush] Med 09/30/18 12:22 Active 2.5 ml FLUSH ASDIRECTED PRN Saline Lock Insert [OM.PC] Stat Oth 09/30/18 11:59 Ordered Saline Lock Insert [OM.PC] Stat Ot 09/30/18 12:23 Ordered Medication Orders Sodium Chloride (Normal Saline) 1,000 mls @ 125 mls/hr IV STAT ONE Stop: 09/30/18 19:59 Last Admin: 09/30/18 12:13 Dose: 125 mls/hr Nitroglycerin/Dextrose (Nitroglycerin 25 Mg/D5w 250 Ml) 25 mg in 250 mls @ 3 mls/hr IV TITRATE MOHSEN; Protocol Last Admin: 09/30/18 12:24 Dose: 5 mcg/min, 3 mls/hr Heparin Sodium/Sodium Chloride (Heparin-1/2ns 25,000 Units/500) 25,000 unit in 500 mls @ 16.874 mls/hr IV TITRATE MOHSEN; Protocol Sodium Chloride (Saline Flush) 10 ml FLUSH ASDIRECTED PRN PRN Reason: Keep Vein Open Sodium Chloride (Saline Flush) 2.5 ml FLUSH ASDIRECTED PRN PRN Reason: Keep Vein Open Sodium Chloride (Saline Flush) 10 ml FLUSH ASDIRECTED PRN PRN Reason: Keep Vein Open Sodium Chloride (Saline Flush) 2.5 ml FLUSH ASDIRECTED PRN PRN Reason: Keep Vein Open Labs: Laboratory Tests 09/30/18 Range/Units 12:00 WBC 5.25 (4.0-11.0) K/uL RBC 4.07 L (4.30-5.90) M/uL Hgb 12.6 (12.0-16.0) g/dL Hct 35.0 L (36.0-46.0) % MCV 86.0 (80.0-98.0) fL MCH 31.0 (27.0-32.0) pg MCHC 36.0 (31.0-37.0) g/dL RDW Std Deviation 36.2 (28.0-62.0) fl RDW Coeff of Elvira 12 (11.0-15.0) % Plt Count 286 (150-400) K/uL MPV 9.00 (7.40-12.00) fL Neut % (Auto) 51.2 (48.0-80.0) % Lymph % (Auto) 37.0 (16.0-40.0) % Marshall % (Auto) 9.7 (0.0-15.0) % Eos % (Auto) 1.7 (0.0-7.0) % Baso % (Auto) 0.4 (0.0-1.5) % Neut # (Auto) 2.7 (1.4-5.7) K/uL Lymph # (Auto) 1.9 (0.6-2.4) K/uL Marshall # (Auto) 0.5 (0.0-0.8) K/uL Eos # (Auto) 0.1 (0.0-0.7) K/uL Baso # (Auto) 0.0 (0.0-0.1) K/uL Nucleated RBC % 0.0 /100WBC Nucleated RBCs # 0 K/uL Meds: Medications Generic Name Dose Route Start Last Admin Trade Name Freq PRN Reason Stop Dose Admin Sodium Chloride 1,000 mls @ 125 mls/hr 09/30/18 12:00 09/30/18 12:13 Normal Saline IV 09/30/18 19:59 125 mls/hr STAT ONE Administration Nitroglycerin/Dextrose 25 mg in 250 mls @ 3 mls/hr 09/30/18 12:15 09/30/18 12 :24 Nitroglycerin 25 Mg/D5w 250 Ml IV 5 mcg/min TITRATE MOHSEN 3 mls/hr Administration Protocol 5 MCG/MIN Heparin Sodium/Sodium Chloride 25,000 unit in 500 mls @ 16.874 mls/hr 12:30 Heparin-1/2ns 25,000 Units/500 IV TITRATE MOHSEN Protocol 12 UNITS/KG/HR Sodium Chloride 10 ml 09/30/18 11:59 Saline Flush FLUSH ASDIRECTED PRN Keep Vein Open Sodium Chloride 2.5 ml 09/30/18 11:59 Saline Flush FLUSH ASDIRECTED PRN Keep Vein Open Sodium Chloride 10 ml 09/30/18 12:22 Saline Flush FLUSH ASDIRECTED PRN Keep Vein Open Sodium Chloride 2.5 ml 09/30/18 12:22 Saline Flush FLUSH ASDIRECTED PRN Keep Vein Open Discontinued Medications Generic Name Dose Route Start Last Admin Trade Name Freq PRN Reason Stop Dose Admin Aspirin 243 mg 09/30/18 11:59 09/30/18 12:14 Aspirin PO 09/30/18 12:00 243 mg ONETIME ONE Administration Clopidogrel Bisulfate 300 mg 09/30/18 12:18 09/30/18 12:39 Plavix PO 09/30/18 12:19 300 mg ONETIME ONE Administration Morphine Sulfate 2 mg 09/30/18 12:11 09/30/18 12:20 Morphine IVPUSH 09/30/18 12:12 2 mg ONETIME ONE Administration Nitroglycerin 0.4 mg 09/30/18 12:06 Nitrostat SL Q5M PRN Chest Pain Ondansetron HCl 4 mg 09/30/18 12:11 09/30/18 12:19 Zofran IVPUSH 09/30/18 12:12 4 mg ONETIME ONE Administration Tenecteplase 40 mg 09/30/18 12:21 Tnkase IV 09/30/18 12:22 ONETIME ONE Protocol Departure - Departure Time of Disposition: 12:41 Disposition: DC/Tfer to Acute Hospital 02 Reason for Transfer *Q: Other Condition: Fair Clinical Impression: Acute myocardial infarction Qualifiers: Myocardial infarction type: ST elevation myocardial infarction Involved coronary artery: unspecified coronary artery Qualified Code(s): I21.3 - ST elevation (STEMI) myocardial infarction of unspecified site Referrals: PCP,Unknown [Primary Care Provider] - - My Orders Last 24 Hours: My Active Orders 09/30/18 11:59 EKG Documentation Completion [RC] STAT Chest 1V Frontal [CR] Stat Sodium Chloride 0.9% [Saline Flush] 10 ml FLUSH ASDIRECTED PRN Sodium Chloride 0.9% [Saline Flush] 2.5 ml FLUSH ASDIRECTED PRN Saline Lock Insert [OM.PC] Stat 09/30/18 12:00 COMPREHENSIVE METABOLIC PN,CMP [CHEM] Stat TROPONIN I [CHEM] Stat UA RFX WEST AND CULT IF INDIC [URIN] Stat Sodium Chloride 0.9% [Normal Saline] 1,000 ml IV STAT 09/30/18 12:22 Sodium Chloride 0.9% [Saline Flush] 10 ml FLUSH ASDIRECTED PRN Sodium Chloride 0.9% [Saline Flush] 2.5 ml FLUSH ASDIRECTED PRN 09/30/18 12:23 Cardiac Monitoring [RC] . DIRECTED EKG Documentation Completion [RC] STAT Saline Lock Insert [OM.PC] Stat 09/30/18 12:30 Heparin Sod,Pork In 0.45% Nacl [Heparin-1/2Ns 25,000 Units/500] 25,000 unit in 500 ml IV TITRATE - Assessment/Plan Last 24 Hours: My Active Orders 09/30/18 11:59 EKG Documentation Completion [RC] STAT Chest 1V Frontal [CR] Stat Sodium Chloride 0.9% [Saline Flush] 10 ml FLUSH ASDIRECTED PRN Sodium Chloride 0.9% [Saline Flush] 2.5 ml FLUSH ASDIRECTED PRN Saline Lock Insert [OM.PC] Stat 09/30/18 12:00 COMPREHENSIVE METABOLIC PN,CMP [CHEM] Stat TROPONIN I [CHEM] Stat UA RFX WEST AND CULT IF INDIC [URIN] Stat Sodium Chloride 0.9% [Normal Saline] 1,000 ml IV STAT 09/30/18 12:22 Sodium Chloride 0.9% [Saline Flush] 10 ml FLUSH ASDIRECTED PRN Sodium Chloride 0.9% [Saline Flush] 2.5 ml FLUSH ASDIRECTED PRN 09/30/18 12:23 Cardiac Monitoring [RC] . DIRECTED EKG Documentation Completion [RC] STAT Saline Lock Insert [OM.PC] Stat 09/30/18 12:30 Heparin Sod,Pork In 0.45% Nacl [Heparin-1/2Ns 25,000 Units/500] 25,000 unit in 500 ml IV TITRATE
[2018-09-30] MEDS ORDERED: Ondansetron 4 MG/2 ML SDV IVPUSH ONE (12:11)
[2018-09-30] MEDS ORDERED: Morphine 2 MG/ML Syringe IVPUSH ONE (12:11)
[2018-09-30] MEDS ORDERED: Nitroglycerin/D5W 25 MG/250 ML BOTTLE IV SCH (12:15)
[2018-09-30] MEDS ORDERED: Clopidogrel 75 MG Tab PO ONE (12:18)
[2018-09-30] MEDS ORDERED: Tenecteplase 50 MG Kit IV ONE (12:21)
[2018-09-30] MEDS ORDERED: Heparin Sod,Pork In 0.45% Nacl 25,000 UNIT/500 ML IV.SOLN IV SCH (12:30)
[2018-09-30 12:48] LABS: CHLORIDE,CL 84 mmol/L (98-107); SODIUM,NA 123 mmol/L (136-145)
--- NOTE | 2018-09-30 12:58 | CR ---
INDICATION: chest pain Single AP view Findings: The lungs are clear. Pulmonary vascularity, mediastinum and cardiac silhouette are within normal limits. No effusions and no pneumothorax. Osseous structures appear unremarkable. Impression: No evidence of acute cardiopulmonary disease. Dictated by: Carl Chawla MD @ 09/30/2018 12:57:43 (Electronically Signed)
== END 2018-09-30 13:00 ==
LOC: MW.ED 11:56
DX: I21.9 Acute myocardial infarction, unspecified (principal); I10 Essential (primary) hypertension; E78.00 Pure hypercholesterolemia, unspecified; K21.9 Gastro-esophageal reflux disease without esophagitis; F32.9 Major depressive disorder, single episode, unspecified; Z79.82 Long term (current) use of aspirin; Z79.899 Other long term (current) drug therapy
CPT/HCPCS: 36415; 71045; 80053; 84484; 85025; 93005; 96365; 96375; 99285; A9270; J2270; J2405; J3101; J3490; J7040; 99284

== ENCOUNTER 2018-10-25 14:41 | Emergency (ER) | payer MEDICARE, BC ==
[2018-10-25] MEDS ORDERED: Aspirin 81 MG Tab.Chew PO ONE ×2 (14:45→14:54)
--- NOTE | 2018-10-25 14:49 | EDM.PDOC ---
ED HPI GENERAL MEDICAL PROBLEM - General Stated Complaint: CHEST PAIN Time Seen by Provider: 10/25/18 14:44 Source of Information: Reports: Patient History Limitations: Reports: No Limitations - History of Present Illness INITIAL COMMENTS - FREE TEXT/NARRATIVE: HISTORY AND PHYSICAL: History of present illness: Patient is a 73-year-old female who presents to the emergency(sternal chest pain that radiates into bilateral anterior shoulders. She states approximately one month ago she was seen in our emergency room and transferred to [facility] for an NV. Her echocardiograph tech, Dr. Turner had placed one stent. She was discharged to home with nitroglycerin sublingual. Approximately one hour prior to arrival she started to feel a heaviness in her chest so she laid on the couch. This heaviness developed into pain/pressure. She states she forgot about her nitroglycerin that rather proceeded to the emergency room. She does mention that she has been monitoring her blood pressure and it has been higher than normal over the past 2-3 days. Patient denies any fever, chills, headache, change in vision, syncope or near syncope. Denies any back pain, shortness of breath or cough. Denies any abdominal pain, nausea, vomiting, diarrhea, constipation or dysuria. Patient has been eating and drinking appropriately. Review of systems: As per history of present illness and below otherwise all systems reviewed and negative. Past medical history: As per history of present illness and as reviewed below otherwise noncontributory. Surgical history: As per history of present illness and as reviewed below otherwise noncontributory. Social history: See social history for further information Family history: As per history of present illness and as reviewed below otherwise noncontributory. Physical exam: General: Well-developed and well-nourished 73-year-old female. Alert and oriented. Nontoxic appearing and in no acute distress. HEENT: Atraumatic, normocephalic, pupils equal and reactive bilaterally, negative for conjunctival pallor or scleral icterus, mucous membranes moist, trachea midline. No drooling or trismus noted. No meningeal signs. No hot potato voice noted. Lungs: Clear to auscultation, breath sounds equal bilaterally, chest nontender. Heart: S1S2, regular rate and rhythm without overt murmur Abdomen: Soft, nondistended, nontender. Negative for masses or hepatosplenomegaly. Negative for costovertebral tenderness. Pelvis: Stable nontender. Skin: Intact, warm, dry. No lesions or rashes noted. Extremities: Atraumatic, moves all extremities per self without difficulty or deficits, negative for cords or calf pain. Neurovascular unremarkable. Neuro: Awake, alert, oriented. Cranial nerves II through XII unremarkable. Cerebellum unremarkable. Motor and sensory unremarkable throughout. Exam nonfocal. Notes: 09/30/2018: Patient was seen in our emergency room and had an acute NV she was TNKase and transferred to [facility] in [place]. No acute changes on her EKG. Patient states that she did not get much relief with the nitroglycerin that was given to her. Nitroglycerin did help improve her blood pressure. Patient's troponin is elevated. She continues to describe a pressure in her chest. Denies any "pain". I did talk with Dr. Field, [facility] in [place] [facility], about this patient and he is agreeable to accept this patient for further evaluation and management. Patient is stable and can be transferred via ground EMS. Patient and family members are aware of her diagnostics and the need for transfer. They voice understanding and are agreeable to plan of care. We will continue to monitor her. Diagnostics: CBC, CMP, Troponin, EKG, Chest Xray Therapeutics: Aspirin, Nitro, Saline Lock, Lovenox, Nitro Paste, Morphine Impression: ACS Plan: Transferred to [facility] via ACLS crew Definitive disposition and diagnosis as appropriate pending reevaluation and review of above. mid chest heaviness Pain Score (Numeric/FACES): 5 - Related Data Allergies Allergy/AdvReac Type Severity Reaction Status Date / Time No Known Allergies Allergy Verified 10/25/18 15:39 Home Meds: Home Meds Rosuvastatin [Crestor] 5 mg PO BEDTIME 08/30/17 [History] Olmesartan [Benicar] 20 mg PO DAILY 05/30/18 [History] hydroCHLOROthiazide [Hydrochlorothiazide] 25 mg PO DAILY 05/30/18 [History] Aspirin [Adult Aspirin] 81 mg PO DAILY 07/11/18 [History] Nitroglycerin 0.4 mg SL ASDIRECTED PRN 07/11/18 [History] Pantoprazole Sodium 40 mg PO DAILY 07/11/18 [History] Desvenlafaxine [Desvenlafaxine ER] 50 mg PO DAILY 07/12/18 [History] Clopidogrel [Plavix] 75 mg PO DAILY 10/25/18 [History] Lisinopril 2.5 mg PO DAILY 10/25/18 [History] Losartan [Cozaar] 25 mg PO DAILY 10/25/18 [History] Metoprolol Succinate [Toprol XL] 25 mg PO DAILY 10/25/18 [History] Past Medical History HEENT History: Reports: Other (See Below) Other HEENT History: wears glasses Cardiovascular History: Reports: High Cholesterol, Hypertension Respiratory History: Reports: None Gastrointestinal History: Reports: GERD Genitourinary History: Reports: None 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: Musculoskeletal History: Reports: Fracture Other Musculoskeletal History: fx toe Neurological History: Reports: Migraines Psychiatric History: Reports: Depression Endocrine/Metabolic History: Reports: None Hematologic History: Reports: None Immunologic History: Reports: None Oncologic (Cancer) History: Reports: None Dermatologic History: Reports: None - Past Surgical History Head Surgeries/Procedures: Reports: None HEENT Surgical History: Reports: Oral Surgery Other HEENT Surgeries/Procedures: wisdom teeth extraction GI Surgical History: Reports: Colonoscopy Female Surgical History: Reports: Breast Biopsy, Tubal Ligation Neurological Surgical History: Reports: None Oncologic Surgical History: Reports: Biopsy of Breast Social & Family History - Family History Family Medical History: Noncontributory - Caffeine Use Caffeine Use: Reports: None ED ROS GENERAL - Review of Systems Review Of Systems: ROS reveals no pertinent complaints other than HPI. ED EXAM, GENERAL - Physical Exam Exam: See Below (See dictation) Course - Vital Signs Last Recorded V/S: Last Vital Signs Temp 97.8 F 10/25/18 14:50 Pulse 74 10/25/18 15:18 Resp 18 10/25/18 15:18 BP 136/74 10/25/18 15:18 Pulse Ox 98 10/25/18 15:18 - Orders/Labs/Meds Orders: Active Orders 24 hr Category Date Time Status EKG Documentation Completion [RC] STAT Care 10/25/18 14:45 Active Nitroglycerin [Nitrostat] Med 10/25/18 14:45 Active 0.4 mg SL Q5M PRN Medication Orders Nitroglycerin (Nitrostat) 0.4 mg SL Q5M PRN PRN Reason: Chest Pain Last Admin: 10/25/18 15:10 Dose: 0.4 mg Admin: 10/25/18 14:57 Dose: 0.4 mg Labs: Laboratory Tests 10/25/18 10/25/18 Range/Units 14:45 14:45 WBC 4.13 (4.0-11.0) K/uL RBC 4.02 L (4.30-5.90) M/uL Hgb 12.3 (12.0-16.0) g/dL Hct 36.8 (36.0-46.0) % MCV 91.5 (80.0-98.0) fL MCH 30.6 (27.0-32.0) pg MCHC 33.4 (31.0-37.0) g/dL RDW Std Deviation 43.3 (28.0-62.0) fl RDW Coeff of Elvira 13 (11.0-15.0) % Plt Count 255 (150-400) K/uL MPV 9.10 (7.40-12.00) fL Neut % (Auto) 37.6 L (48.0-80.0) % Lymph % (Auto) 47.9 H (16.0-40.0) % [place]roy[place] % (Auto) 6.5 (0.0-15.0) % Eos % (Auto) 7.3 H (0.0-7.0) % Baso % (Auto) 0.7 (0.0-1.5) % Neut # (Auto) 1.6 (1.4-5.7) K/uL Lymph # (Auto) 2.0 (0.6-2.4) K/uL [place] # (Auto) 0.3 (0.0-0.8) K/uL Eos # (Auto) 0.3 (0.0-0.7) K/uL Baso # (Auto) 0.0 (0.0-0.1) K/uL Nucleated RBC % 0.0 /100WBC Nucleated RBCs # 0 K/uL Sodium 130 L (136-145) mmol/L Potassium 3.5 (3.5-5.1) mmol/L Chloride 96 L (98-107) mmol/L Carbon Dioxide 26.3 (21.0-32.0) mmol/L BUN 7 (7.0-18.0) mg/dL Creatinine 0.6 (0.6-1.0) mg/dL Est Cr Clr Drug Dosing 69.08 mL/min Estimated GFR (MDRD) > 60.0 ml/min Glucose 99 (74-106) mg/dL Calcium 9.2 (8.5-10.1) mg/dL Total Bilirubin 0.6 (0.2-1.0) mg/dL AST 20 (15-37) IU/L ALT 23 (14-63) IU/L Alkaline Phosphatase 76 (46-116) U/L Troponin I 0.188 H* (0.000-0.056) ng/mL Total Protein 7.6 (6.4-8.2) g/dL Albumin 4.3 (3.4-5.0) g/dL Globulin 3.3 (2.6-4.0) g/dL Albumin/Globulin Ratio 1.3 (0.9-1.6) Meds: Medications Generic Name Dose Route Start Last Admin Trade Name Freq PRN Reason Stop Dose Admin Nitroglycerin 0.4 mg 10/25/18 14:45 10/25/18 15:10 Nitrostat SL 0.4 mg Q5M PRN Administration Chest Pain Discontinued Medications Generic Name Dose Route Start Last Admin Trade Name Freq PRN Reason Stop Dose Admin Aspirin 324 mg 10/25/18 14:45 10/25/18 14:59 Aspirin PO 10/25/18 14:46 Not Given ONETIME ONE Aspirin 162 mg 10/25/18 14:54 10/25/18 14:56 Aspirin PO 10/25/18 14:55 162 mg ONETIME ONE Administration Enoxaparin Sodium 70 mg 10/25/18 15:34 10/25/18 15:50 Lovenox SUBCUT 10/25/18 15:35 70 mg ONETIME ONE Administration Morphine Sulfate 2 mg 10/25/18 15:32 10/25/18 15:50 Morphine IVPUSH 10/25/18 15:33 2 mg ONETIME ONE Administration Nitroglycerin 1 gm 10/25/18 15:32 10/25/18 15:49 Nitro-Bid 2% TOP 10/25/18 15:33 1 gm ONETIME ONE Administration Departure - Departure Time of Disposition: 15:56 Disposition: DC/Tfer to Acute Hospital 02 Reason for Transfer *Q: Primary PCI Indicated Clinical Impression: ACS (acute coronary syndrome) - My Orders Last 24 Hours: My Active Orders 10/25/18 14:45 EKG Documentation Completion [RC] STAT Nitroglycerin [Nitrostat] 0.4 mg SL Q5M PRN - Assessment/Plan Last 24 Hours: My Active Orders 10/25/18 14:45 EKG Documentation Completion [RC] STAT Nitroglycerin [Nitrostat] 0.4 mg SL Q5M PRN
[2018-10-25] MEDS: Nitroglycerin 0.4 MG Tab.SL SL PRN ×2 (14:57→15:10)
[2018-10-25 15:26] LABS: CHLORIDE,CL 96 mmol/L (98-107); SODIUM,NA 130 mmol/L (136-145)
[2018-10-25] MEDS ORDERED: Morphine 2 MG/ML Syringe IVPUSH ONE (15:32)
[2018-10-25] MEDS ORDERED: Nitroglycerin 2% Oint 1 GM UD Packet TOP ONE (15:32)
[2018-10-25] MEDS ORDERED: Enoxaparin 100 MG/1 ML Syringe SUBCUT ONE (15:34)
--- NOTE | 2018-10-25 15:49 | CR ---
INDICATION: Chest pain; shortness of breath. COMPARISON: Portable AP chest September 30, 2018. TECHNIQUE: Portable AP chest. FINDINGS: Mild stable cardiomegaly. Clear lung garcia with no evidence of acute pneumonic infiltrates or CHF. No pneumothorax or pleural effusion. No interval change. IMPRESSION: No acute pathology. Dictated by Minesh Soni MD @ Oct 25 2018 3:47PM Signed by Dr. Minesh Soni @ Oct 25 2018 3:48PM
== END 2018-10-25 17:45 ==
LOC: MW.ED 14:41
DX: I24.9 Acute ischemic heart disease, unspecified (principal); I10 Essential (primary) hypertension; E78.00 Pure hypercholesterolemia, unspecified; K21.9 Gastro-esophageal reflux disease without esophagitis; F32.9 Major depressive disorder, single episode, unspecified; Z79.82 Long term (current) use of aspirin; Z79.899 Other long term (current) drug therapy
CPT/HCPCS: 36415; 71045; 80053; 84484; 85025; 93005; 96372; 96374; 99285; A9270; J1650; J2270

== ENCOUNTER 2019-06-28 13:38 | Emergency (ER) | payer MEDICARE, BC ==
[2019-06-28] MEDS ORDERED: Acetaminophen 325 MG Tab PO ONE (15:23)
--- NOTE | 2019-06-28 15:45 | EDM.PDOC ---
ED HPI GENERAL MEDICAL PROBLEM - General Chief Complaint: Lower Extremity Injury/Pain Stated Complaint: SPRAINED ANKLE Time Seen by Provider: 06/28/19 14:35 Source of Information: Reports: Patient, Family History Limitations: Reports: No Limitations - History of Present Illness INITIAL COMMENTS - FREE TEXT/NARRATIVE: Is a 73-year-old female with past medical history of hypertension CAD presenting with a chief complaint of left ankle pain. Patient states she was in her house and her left ankle. Patient denies hitting her head or any other bodily trauma. Patient complains of left ankle pain without radiation. Pain is moderate in nature. Patient is unable to bear weight to the ankle. Reports mild associated swelling. Patient has not taken any other medications. This happened 1 hour prior to arrival. Pmhx: As per HPI Pshx: None Family Hx: noncontributory Smoking history? no Etoh use? none Drug use? none In addition to that documented in the HPI above, the additional ROS was obtained : Constitutional: Denies fevers or chills Eyes: Denies vision changes ENMT: Denies sore throat CV: Denies chest pain Resp: Denies SOB GI: Denies vomiting or diarrhea : Denies painful urination MSK: Per HPI Skin: Denies new rashes Neuro: Denies new numbness or tingling or weakness Endocrine: Denies unexpected weight loss Heme: Denies bleeding disorders I have reviewed the triage vital signs Const: Well nourished, well developed, appears stated age Eyes: PERRL, no conjunctival injection HENT: NCAT, Neck supple without meningismus CV: RRR, Warm, well-perfused extremities RESP: CTAB, Unlabored respiratory effort GI: soft, non-tender, non-distended, no masses MSK: Swelling and tenderness over the lateral malleolus of the left ankle. Minimal discoloration no deformities noted. Skin: Warm, dry. No rashes Neuro: Alert, sulphate tester II-XII grossly intact. Sensation and motor function of extremities grossly intact. Psych: Appropriate mood and affect Assessment and plan: Patient 73-year-old female with isolated ankle sprain. Patient has no other bodily trauma. Patient pain uncontrolled with Tylenol. Patient will be discharged home with ambulatory support. All questions addressed and answered. Patient agrees with plan. Left Ankle Pain Score (Numeric/FACES): 8 - Related Data Allergies Allergy/AdvReac Type Severity Reaction Status Date / Time No Known Allergies Allergy Verified 10/25/18 15:39 Home Meds: Home Meds Rosuvastatin [Crestor] 5 mg PO BEDTIME 08/30/17 [History] Olmesartan [Benicar] 20 mg PO DAILY 05/30/18 [History] hydroCHLOROthiazide [Hydrochlorothiazide] 25 mg PO DAILY 05/30/18 [History] Aspirin [Adult Aspirin] 81 mg PO DAILY 07/11/18 [History] Nitroglycerin 0.4 mg SL ASDIRECTED PRN 07/11/18 [History] Pantoprazole Sodium 40 mg PO DAILY 07/11/18 [History] Desvenlafaxine [Desvenlafaxine ER] 50 mg PO DAILY 07/12/18 [History] Clopidogrel [Plavix] 75 mg PO DAILY 10/25/18 [History] Lisinopril 2.5 mg PO DAILY 10/25/18 [History] Losartan [Cozaar] 25 mg PO DAILY 10/25/18 [History] Metoprolol Succinate [Toprol XL] 25 mg PO DAILY 10/25/18 [History] Past Medical History HEENT History: Reports: Other (See Below) Other HEENT History: wears glasses Cardiovascular History: Reports: High Cholesterol, Hypertension Respiratory History: Reports: None Gastrointestinal History: Reports: GERD Genitourinary History: Reports: None [employer] History: Reports: Musculoskeletal History: Reports: Fracture Other Musculoskeletal History: fx toe Neurological History: Reports: Migraines Psychiatric History: Reports: Depression Endocrine/Metabolic History: Reports: None Hematologic History: Reports: None Immunologic History: Reports: None Oncologic (Cancer) History: Reports: None Dermatologic History: Reports: None - Infectious Disease History Infectious Disease History: Reports: Chicken Pox, Measles, Mumps, Rubella - Past Surgical History Head Surgeries/Procedures: Reports: None HEENT Surgical History: Reports: Oral Surgery Other HEENT Surgeries/Procedures: wisdom teeth extraction GI Surgical History: Reports: Colonoscopy Female Surgical History: Reports: Breast Biopsy, Tubal Ligation Neurological Surgical History: Reports: None Oncologic Surgical History: Reports: Biopsy of Breast Social & Family History - Family History Family Medical History: Noncontributory - Tobacco Use Smoking Status *Q: Never Smoker - Caffeine Use Caffeine Use: Reports: Coffee, Soda, Tea - Recreational Drug Use Recreational Drug Use: No Review of Systems - Review of Systems Review Of Systems: See Below ED EXAM, GENERAL - Physical Exam Exam: See Below Course - Vital Signs Last Recorded V/S: Last Vital Signs Temp 36.8 C 06/28/19 13:56 Pulse 62 06/28/19 15:38 Resp 15 06/28/19 15:38 BP 163/68 H 06/28/19 15:38 Pulse Ox 95 06/28/19 15:38 - Orders/Labs/Meds Meds: Medications Discontinued Medications Generic Name Dose Route Start Last Admin Trade Name Nicole PRN Reason Stop Dose Admin Acetaminophen 650 mg 06/28/19 15:23 06/28/19 15:37 Tylenol PO 06/28/19 15:24 650 mg NOW ONE Administration Oxycodone/Acetaminophen 1 tab 06/28/19 16:06 06/28/19 16:19 Percocet 325-5 Mg PO 06/28/19 16:07 1 tab ONETIME ONE Administration Departure - Departure Time of Disposition: 16:20 Disposition: Home, Self-Care 01 Clinical Impression: Left ankle sprain - Discharge Information Instructions: Ankle Sprain, [id number] Referrals: Cesia Dewitt DO [Primary Care Provider] - Forms: ED Department Discharge Additional Instructions: The following information is given to patients seen in the emergency department who are being discharged to home. This information is to outline your options for follow-up care. We provide all patients seen in our emergency department with a follow-up referral. The need for follow-up, as well as the timing and circumstances, are variable depending upon the specifics of your emergency department visit. If you don't have a primary care physician on staff, we will provide you with a referral. We always advise you to contact your personal physician following an emergency department visit to inform them of the circumstance of the visit and for follow-up with them and/or the need for any referrals to a consulting specialist. The emergency department will also refer you to a specialist when appropriate. This referral assures that you have the opportunity for follow-up care with a specialist. All of these measure are taken in an effort to provide you with optimal care, which includes your follow-up. Under all circumstances we always encourage you to contact your private physician who remains a resource for coordinating your care. When calling for follow-up care, please make the office aware that this follow-up is from your recent emergency room visit. If for any reason you are refused follow-up, please contact the [facility] Emergency Department at and asked to speak to the emergency department charge nurse. Sepsis Event Note - Evaluation Sepsis Screening Result: No Definite Risk - Focused Exam Vital Signs: Vital Signs Temp Pulse Resp BP Pulse Ox 06/28/19 15:38 62 15 163/68 H 95 06/28/19 13:56 36.8 C 69 17 128/68 97 Date Exam was Performed: 06/28/19 Time Exam was Performed: 16:22
[2019-06-28] MEDS ORDERED: Acetaminophen/oxyCODONE 325-5 MG Tab PO ONE (16:06)
--- NOTE | 2019-06-28 16:17 | CR ---
Left ankle: 3 views left ankle were obtained. Comparison: No prior ankle exam. Plantar spur is noted. Very minimal spur is noted at the attachment of the Achilles tendon to the calcaneus. Bony structures are slightly osteopenic. Previous surgery is noted within the distal first metatarsal. Mild joint space narrowing is scattered within the midfoot. No acute fracture or dislocation is identified. Impression: 1. Findings as noted above. Nothing acute is appreciated on left ankle exam. Diagnostic code #2 Study was dictated in [place] Standard Time
== END 2019-06-28 16:58 | disposition home or self-care (01) ==
LOC: MW.ED 13:38
DX: S93.402A Sprain of unspecified ligament of left ankle, initial encounter (principal); I10 Essential (primary) hypertension; E78.00 Pure hypercholesterolemia, unspecified; K21.9 Gastro-esophageal reflux disease without esophagitis; F32.9 Major depressive disorder, single episode, unspecified; Z79.899 Other long term (current) drug therapy; Z79.82 Long term (current) use of aspirin; Z79.02 Long term (current) use of antithrombotics/antiplatelets; W22.8XXA Striking against or struck by other objects, initial encounter
CPT/HCPCS: 73610; 99283; A9270

== ENCOUNTER 2021-10-27 01:16 | Emergency (ER) | payer MEDICARE, BC ==
[2021-10-27] MEDS ORDERED: Sodium Chloride 0.9% 10 ML Syringe FLUSH PRN (01:34)
[2021-10-27] MEDS ORDERED: Sodium Chloride 0.9% 2.5 ML Syringe FLUSH PRN (01:34)
[2021-10-27] MEDS ORDERED: Nitroglycerin 0.4 MG Tab.SL SL PRN (01:35)
[2021-10-27 01:59] LABS: CARBON DIOXIDE,CO2 22.9 mmol/L (21.0-32.0); POTASSIUM,K 3.8 mmol/L (3.5-5.1)
[2021-10-27] MEDS ORDERED: Heparin Sodium/0.45% NaCl 500 ML IV SCH (03:30)
[2021-10-27] MEDS ORDERED: Heparin Sodium 5,000 Units/ML Vial IVPUSH ONE (04:03)
== END 2021-10-27 10:20 ==
LOC: MW.ED 01:16
DX: I21.4 Non-ST elevation (NSTEMI) myocardial infarction (principal); I25.10 Atherosclerotic heart disease of native coronary artery without angina pectoris; I25.2 Old myocardial infarction; E78.00 Pure hypercholesterolemia, unspecified; I10 Essential (primary) hypertension; K21.9 Gastro-esophageal reflux disease without esophagitis; Z79.02 Long term (current) use of antithrombotics/antiplatelets; Z79.899 Other long term (current) drug therapy
CPT/HCPCS: 36415; 71045; 80053; 84484; 85025; 85730; 93005; 96365; 96366; 99285; A9270; J1644; 93010

== ENCOUNTER 2022-08-20 10:53 | Emergency (ER) | payer MEDICARE, BC ==
[2022-08-20] MEDS ORDERED: Sodium Chloride 0.9% 2.5 ML Syringe FLUSH PRN (11:33)
[2022-08-20] MEDS ORDERED: Sodium Chloride 0.9% 10 ML Syringe FLUSH PRN (11:33)
[2022-08-20] MEDS ORDERED: Ketorolac 30 MG/ML SDV IVPUSH ONE (11:50)
[2022-08-20 12:50] LABS: CARBON DIOXIDE,CO2 25.8 mmol/L (21.0-32.0); POTASSIUM,K 4.2 mmol/L (3.5-5.1)
[2022-08-21] MEDS ORDERED: Lidocaine 2% 5 ML SDV ONE (08:47)
[2022-08-21] MEDS ORDERED: Ondansetron 4 MG/2 ML SDV ONE (08:47)
[2022-08-21] MEDS ORDERED: Ketorolac 30 MG/ML SDV ONE (08:47)
[2022-08-21] MEDS ORDERED: Lidocaine 2% 11 ML Jelly Filled Syringe ONE (08:47)
[2022-08-21] MEDS ORDERED: Propofol 200 MG/20 ML SDV ONE (08:48)
== END 2022-08-20 15:21 | disposition home or self-care (01) ==
LOC: MW.ED 10:53
DX: M25.511 Pain in right shoulder (principal); R77.8 Other specified abnormalities of plasma proteins; E78.00 Pure hypercholesterolemia, unspecified; I10 Essential (primary) hypertension; I25.10 Atherosclerotic heart disease of native coronary artery without angina pectoris; F03.90 Unspecified dementia, unspecified severity, without behavioral disturbance, psychotic disturbance, mood disturbance, and anxiety; K21.9 Gastro-esophageal reflux disease without esophagitis; Z79.899 Other long term (current) drug therapy; Z79.02 Long term (current) use of antithrombotics/antiplatelets
CPT/HCPCS: 36415; 71045; 73030; 80053; 84484; 85025; 93005; 96374; 99284; J1885; J3490; 93010

== ENCOUNTER 2022-09-19 11:54 | Observation (INO) | payer MEDICARE, BC ==
[2022-09-19] MEDS ORDERED: Ondansetron 4 MG/2 ML SDV IVPUSH ONE (12:21)
[2022-09-19] MEDS ORDERED: Lactated Ringers 1,000 ML IV SCH (13:00)
[2022-09-19 13:23] LABS: BASOPHILS PERCENT AUTO 0.9 % (0.0-1.5); EOSINOPHILS ABSOLUTE AUTO 0.2 K/uL (0.0-0.7); EOSINOPHILS PERCENT AUTO 3.3 % (0.0-7.0); HEMATOCRIT 28.1 % (36.0-46.0); HEMOGLOBIN 9.7 g/dL (12.0-16.0); LYMPHOCYTES PERCENT AUTO 22.2 % (16.0-40.0); MEAN CORPUSCULAR HEMOGLOBIN 30.9 pg (27.0-32.0); MEAN CORPUSCULAR HGB CONC 34.5 g/dL (31.0-37.0); MEAN CORPUSCULAR VOLUME 89.5 fL (80.0-98.0); MONOCYTES ABSOLUTE AUTO 0.3 K/uL (0.0-0.8); MONOCYTES PERCENT AUTO 6.7 % (0.0-15.0); NEUTROPHILS ABSOLUTE AUTO 3.1 K/uL (1.4-5.7); NEUTROPHILS PERCENT AUTO 66.9 % (48.0-80.0); NRBC ABSOLUTE 0 K/uL; PLATELET COUNT,PLT 254 K/uL (150-400); RED BLOOD CELL COUNT 3.14 M/uL (4.30-5.90)
[2022-09-19 13:47] LABS: A/G RATIO 1.3 (0.9-1.6); ALBUMIN 3.9 g/dL (3.4-5.0); BILIRUBIN TOTAL 0.6 mg/dL (0.2-1.0); CALCIUM 9.4 mg/dL (8.5-10.1); CARBON DIOXIDE,CO2 22.9 mmol/L (21.0-32.0); CREATININE 0.9 mg/dL (0.6-1.0); EST CRCL DRUG DOSING (CG) 45.2 mL/min; POTASSIUM,K 3.9 mmol/L (3.5-5.1)
[2022-09-19 14:16] LABS: BILIRUBIN,URINE NEGATIVE (NEGATIVE); COLOR,URINE YELLOW; GLUCOSE,URINE NEGATIVE (NEGATIVE); KETONES,URINE NEGATIVE (NEGATIVE); LEUKOCYTE ESTERASE,URINE SMALL (NEGATIVE); NITRITE,URINE NEGATIVE (NEGATIVE); OCCULT BLOOD,URINE TRACE-INTACT (NEGATIVE); PH,URINE 6.5 (5.0-8.0); PROTEIN,URINE NEGATIVE (NEGATIVE); UROBILINOGEN,URINE 0.2 EU/dL (<2.0)
[2022-09-19 14:18] LABS: APPEARANCE,URINE HAZY
[2022-09-19 14:24] LABS: BACTERIA,URINE FEW (NEGATIVE); EPITHELIAL CELLS,URINE RARE (NONE-FEW); RBC,URINE 0-2 (0-2/HPF)
[2022-09-19] MEDS ORDERED: NITROGLYCERIN 0.3 MG PO PRN (17:25)
[2022-09-19] MEDS ORDERED: Ondansetron 4 MG/2 ML SDV IVPUSH PRN (17:29)
[2022-09-19] MEDS ORDERED: cefTRIAXone 1 GM in Sodium Chloride 0.9% 50 ML IV SCH (17:30)
[2022-09-19] MEDS ORDERED: Pantoprazole 40 MG Tab.CR PO SCH (17:30)
[2022-09-19] MEDS ORDERED: Nitroglycerin 0.4 MG Tab.SL SL PRN (17:41)
[2022-09-19 17:43] LABS: PERCENT FE SATURATION 40.3 % (20-55)
[2022-09-19 20:22] LABS: HEMATOCRIT 28.3 % (36.0-46.0); HEMOGLOBIN 9.7 g/dL (12.0-16.0)
[2022-09-19] MEDS: MEMANTINE HCL 10 MG PO SCH (20:55)
[2022-09-20 05:59] LABS: EOSINOPHILS ABSOLUTE AUTO 0.4 K/uL (0.0-0.7); EOSINOPHILS PERCENT AUTO 9.2 % (0.0-7.0); HEMATOCRIT 27.9 % (36.0-46.0); HEMOGLOBIN 9.4 g/dL (12.0-16.0); LYMPHOCYTES ABSOLUTE AUTO 1.1 K/uL (0.6-2.4); LYMPHOCYTES PERCENT AUTO 29.1 % (16.0-40.0); MEAN CORPUSCULAR HEMOGLOBIN 30.4 pg (27.0-32.0); MEAN CORPUSCULAR HGB CONC 33.7 g/dL (31.0-37.0); MEAN CORPUSCULAR VOLUME 90.3 fL (80.0-98.0); MONOCYTES ABSOLUTE AUTO 0.4 K/uL (0.0-0.8); MONOCYTES PERCENT AUTO 9.2 % (0.0-15.0); NEUTROPHILS PERCENT AUTO 51.5 % (48.0-80.0); NRBC ABSOLUTE 0 K/uL; PLATELET COUNT,PLT 263 K/uL (150-400); RED BLOOD CELL COUNT 3.09 M/uL (4.30-5.90); WHITE BLOOD CELL COUNT,WBC 3.92 K/uL (4.0-11.0)
[2022-09-20 06:18] LABS: CALCIUM 8.6 mg/dL (8.5-10.1); CARBON DIOXIDE,CO2 22.9 mmol/L (21.0-32.0); CREATININE 0.8 mg/dL (0.6-1.0); EST CRCL DRUG DOSING (CG) 50.85 mL/min; POTASSIUM,K 3.8 mmol/L (3.5-5.1)
[2022-09-20] MEDS ORDERED: Acetaminophen 325 MG Tab ONE (08:36)
[2022-09-20] MEDS ORDERED: Acetaminophen 325 MG Supp ONE (08:36)
[2022-09-20] MEDS ORDERED: Clopidogrel 75 MG Tab PO SCH (09:00)
[2022-09-20] MEDS ORDERED: Donepezil 5 MG Tab PO SCH (09:00)
[2022-09-20] MEDS ORDERED: Losartan 50 MG Tab PO SCH (09:00)
[2022-09-20] MEDS ORDERED: Desvenlafaxine [Desvenlafaxine Er] 50 MG Tab.Er.24h PO SCH (09:00)
[2022-09-20] MEDS: MEMANTINE HCL 10 MG PO SCH (09:06)
[2022-09-20] MEDS ORDERED: PRAVASTATIN SODIUM 10 MG PO SCH (21:00)
[2022-09-20] MEDS ORDERED: Pantoprazole 40 MG Tab.CR PO SCH (21:00)
== END 2022-09-20 13:45 | disposition home or self-care (01) ==
LOC: MW.ED 11:54 → MW.MS 15:15 → UNDOADMOB 15:45 → MW.MS 15:45
PROVIDERS: ADMIT Internal Medicine; ATTEND Internal Medicine
DX: D64.9 Anemia, unspecified (principal); I25.10 Atherosclerotic heart disease of native coronary artery without angina pectoris; K21.9 Gastro-esophageal reflux disease without esophagitis; E78.00 Pure hypercholesterolemia, unspecified; G31.84 Mild cognitive impairment of uncertain or unknown etiology; N39.0 Urinary tract infection, site not specified; I10 Essential (primary) hypertension; I25.2 Old myocardial infarction; G43.909 Migraine, unspecified, not intractable, without status migrainosus; F41.9 Anxiety disorder, unspecified; F32.A Depression, unspecified; Z90.710 Acquired absence of both cervix and uterus; Z98.51 Tubal ligation status; Z87.891 Personal history of nicotine dependence; Z95.5 Presence of coronary angioplasty implant and graft; Z79.899 Other long term (current) drug therapy
CPT/HCPCS: 36415; 80048; 80053; 81001; 82272; 82728; 83550; 83690; 85014; 85018; 85025; 87086; 93005; 96360; 99284; A9270; J0696; J3490; J7120; 93010; 96361; 96365; 99285; G0378

== ENCOUNTER 2022-09-30 16:04 | Emergency (ER) | payer MEDICARE, BC ==
[2022-09-30] MEDS ORDERED: Sodium Chloride 0.9% 2.5 ML Syringe FLUSH PRN (16:06)
[2022-09-30] MEDS ORDERED: Sodium Chloride 0.9% 10 ML Syringe FLUSH PRN (16:06)
[2022-09-30] MEDS ORDERED: Morphine 4 MG/ML Syringe IVPUSH ONE ×2 (16:14→16:44)
[2022-09-30] MEDS ORDERED: Ondansetron 4 MG/2 ML SDV IVPUSH ONE (16:14)
[2022-09-30] MEDS: Nitroglycerin 0.4 MG Tab.SL SL PRN ×3 (16:19→16:33)
[2022-09-30 16:21] LABS: BASOPHILS PERCENT AUTO 0.4 % (0.0-1.5); EOSINOPHILS ABSOLUTE AUTO 0.3 K/uL (0.0-0.7); EOSINOPHILS PERCENT AUTO 3.8 % (0.0-7.0); HEMATOCRIT 33.3 % (36.0-46.0); HEMOGLOBIN 11.5 g/dL (12.0-16.0); LYMPHOCYTES ABSOLUTE AUTO 3.9 K/uL (0.6-2.4); LYMPHOCYTES PERCENT AUTO 53.6 % (16.0-40.0); MEAN CORPUSCULAR HEMOGLOBIN 32.2 pg (27.0-32.0); MEAN CORPUSCULAR HGB CONC 34.5 g/dL (31.0-37.0); MEAN CORPUSCULAR VOLUME 93.3 fL (80.0-98.0); MONOCYTES ABSOLUTE AUTO 0.5 K/uL (0.0-0.8); MONOCYTES PERCENT AUTO 6.5 % (0.0-15.0); NEUTROPHILS ABSOLUTE AUTO 2.6 K/uL (1.4-5.7); NEUTROPHILS PERCENT AUTO 35.7 % (48.0-80.0); PLATELET COUNT,PLT 390 K/uL (150-400); RED BLOOD CELL COUNT 3.57 M/uL (4.30-5.90)
[2022-09-30] MEDS: Aspirin 81 MG Tab.Chew PO STA ×2 (16:27→16:39)
[2022-09-30 16:47] LABS: A/G RATIO 1.2 (0.9-1.6); ALBUMIN 4.2 g/dL (3.4-5.0); BILIRUBIN TOTAL 0.6 mg/dL (0.2-1.0); CALCIUM 10.2 mg/dL (8.5-10.1); CARBON DIOXIDE,CO2 23.6 mmol/L (21.0-32.0); CREATININE 0.8 mg/dL (0.6-1.0); EST CRCL DRUG DOSING (CG) 52.99 mL/min; POTASSIUM,K 3.4 mmol/L (3.5-5.1); PROTEIN TOTAL,TP 7.7 g/dL (6.4-8.2)
[2022-09-30 16:52] LABS: MAGNESIUM 2.1 mg/dL (1.8-2.4)
[2022-09-30] MEDS ORDERED: LORazepam 2 MG/ML SDV IVPUSH ONE (17:10)
[2022-09-30 17:21] LABS: CORONAVIRUS COVID-19 NAA NEGATIVE (NEGATIVE); INFLUENZA A NAA NEGATIVE (NEGATIVE); INFLUENZA B NAA NEGATIVE (NEGATIVE)
[2022-09-30] MEDS ORDERED: hydrALAZINE 20 MG/ML SDV IVPUSH ONE (19:29)
== END 2022-09-30 20:29 | disposition home or self-care (01) ==
LOC: MW.ED 16:04
DX: I16.0 Hypertensive urgency (principal); M25.511 Pain in right shoulder; E78.00 Pure hypercholesterolemia, unspecified; I10 Essential (primary) hypertension; I25.2 Old myocardial infarction; K21.9 Gastro-esophageal reflux disease without esophagitis; Z79.899 Other long term (current) drug therapy; Z79.02 Long term (current) use of antithrombotics/antiplatelets; Z20.822 Contact with and (suspected) exposure to COVID-19
CPT/HCPCS: 0240U; 36415; 71045; 80053; 83735; 84484; 85025; 93005; 96374; 96375; 99284; A9270; J0360; J2060; J2270; J2405; J3490; 93010

== ENCOUNTER 2022-10-10 18:37 | Emergency (ER) | payer MEDICARE, BC ==
[2022-10-10] MEDS ORDERED: Nitroglycerin 0.4 MG Tab.SL SL PRN (19:07)
[2022-10-10] MEDS ORDERED: Aspirin 81 MG Tab.Chew PO ONE (19:07)
[2022-10-10] MEDS ORDERED: Morphine 4 MG/ML Syringe IVPUSH ONE ×2 (19:28→20:11)
[2022-10-10 19:30] LABS: BASOPHILS PERCENT AUTO 0.7 % (0.0-1.5); EOSINOPHILS ABSOLUTE AUTO 0.1 K/uL (0.0-0.7); HEMATOCRIT 37.2 % (36.0-46.0); HEMOGLOBIN 12.8 g/dL (12.0-16.0); LYMPHOCYTES PERCENT AUTO 54.2 % (16.0-40.0); MEAN CORPUSCULAR HEMOGLOBIN 32.2 pg (27.0-32.0); MEAN CORPUSCULAR HGB CONC 34.4 g/dL (31.0-37.0); MEAN CORPUSCULAR VOLUME 93.7 fL (80.0-98.0); MONOCYTES ABSOLUTE AUTO 0.3 K/uL (0.0-0.8); MONOCYTES PERCENT AUTO 5.1 % (0.0-15.0); NEUTROPHILS ABSOLUTE AUTO 2.1 K/uL (1.4-5.7); NRBC ABSOLUTE 0 K/uL; PLATELET COUNT,PLT 322 K/uL (150-400); RED BLOOD CELL COUNT 3.97 M/uL (4.30-5.90); WHITE BLOOD CELL COUNT,WBC 5.52 K/uL (4.0-11.0)
[2022-10-10 19:51] LABS: A/G RATIO 1.3 (0.9-1.6); ALBUMIN 4.7 g/dL (3.4-5.0); BILIRUBIN TOTAL 0.5 mg/dL (0.2-1.0); CALCIUM 10.5 mg/dL (8.5-10.1); CARBON DIOXIDE,CO2 18.4 mmol/L (21.0-32.0); CREATININE 0.8 mg/dL (0.6-1.0); EST CRCL DRUG DOSING (CG) 50.85 mL/min; MAGNESIUM 1.9 mg/dL (1.8-2.4); PROTEIN TOTAL,TP 8.4 g/dL (6.4-8.2)
[2022-10-10 20:02] LABS: D-DIMER QUANTITATIVE 1.2 mg/L FEU (0.00-0.50); INR 0.97 (0.86-1.11); PTT,PARTIAL THROMBOPLSTIN TIME 27.8 SEC (23.9-30.7)
[2022-10-10] MEDS ORDERED: Potassium Chloride 20 MEQ Tab.ER PO ONE (20:05)
[2022-10-10] MEDS ORDERED: LORazepam 2 MG/ML SDV IVPUSH ONE (20:33)
[2022-10-10] MEDS ORDERED: Nitroglycerin/D5W 25 MG/250 ML BOTTLE IV SCH (21:15)
[2022-10-10] MEDS ORDERED: Midazolam 5 MG/ML SDV IVPUSH PRN ×2 (21:50→21:51)
[2022-10-10] MEDS ORDERED: Iopamidol 755 MG/ML 500 ML Multipack Bottle IVPUSH STA (22:31)
[2022-10-10] MEDS ORDERED: Enoxaparin 100 MG/1 ML Syringe SUBCUT STA (23:37)
== END 2022-10-11 00:48 ==
LOC: MW.ED 18:37
DX: I21.4 Non-ST elevation (NSTEMI) myocardial infarction (principal); I10 Essential (primary) hypertension; K21.9 Gastro-esophageal reflux disease without esophagitis; I25.2 Old myocardial infarction; Z79.899 Other long term (current) drug therapy; Z79.02 Long term (current) use of antithrombotics/antiplatelets
CPT/HCPCS: 36415; 71045; 71275; 80053; 83735; 83880; 84484; 85025; 85379; 85610; 85730; 93005; 96365; 96366; 96372; 96375; 96376; 99285; A9270; J1650; J2060; J2270; J3490; Q9967; 93010; 99291; J2250

== ENCOUNTER 2022-12-07 21:34 | Emergency (ER) | payer MEDICARE, BC | END 2022-12-07 22:20 | disposition left against medical advice (07) | LOC: MW.ED 21:34 | DX: Z53.21 Procedure and treatment not carried out due to patient leaving prior to being seen by health care provider (principal) ==

== ENCOUNTER 2022-12-27 07:52 | Day surgery (SDC) | payer MEDICARE, BC ==
[~2022-12-27 07:52] MED LIST: Lactated Ringers 1,000 ML IV SCH; Sodium Chloride 0.9% 10 ML Syringe FLUSH PRN; Sodium Chloride 0.9% 2.5 ML Syringe FLUSH PRN; Sodium Chloride 0.9% 20 ML SDV IV PRN
[2022-12-27] MEDS ORDERED: ePHEDrine 50 MG/ML SDV IVPUSH ONE (07:53)
[2022-12-27] MEDS ORDERED: Glycopyrrolate 0.2 MG/ML SDV IVPUSH ONE (07:53)
[2022-12-27] MEDS ORDERED: propofoL 50 ML ONE (08:15)
[2022-12-27] MEDS ORDERED: Propofol 200 MG/20 ML SDV ONE (08:16)
== END 2022-12-27 10:36 | disposition home or self-care (01) ==
LOC: MW.SDS 07:52
PROVIDERS: ATTEND Surgery
DX: K29.50 Unspecified chronic gastritis without bleeding (principal); K44.9 Diaphragmatic hernia without obstruction or gangrene; D50.9 Iron deficiency anemia, unspecified; J44.9 Chronic obstructive pulmonary disease, unspecified; I25.2 Old myocardial infarction; I10 Essential (primary) hypertension; E78.00 Pure hypercholesterolemia, unspecified; N89.8 Other specified noninflammatory disorders of vagina; I20.9 Angina pectoris, unspecified; K21.9 Gastro-esophageal reflux disease without esophagitis; N20.0 Calculus of kidney; G43.909 Migraine, unspecified, not intractable, without status migrainosus; G31.84 Mild cognitive impairment of uncertain or unknown etiology; Z90.710 Acquired absence of both cervix and uterus; Z87.891 Personal history of nicotine dependence; Z98.51 Tubal ligation status
CPT/HCPCS: 43239; 88305; G0121; J2704; J3490; J7120; 00813; 45378; 99100

== ENCOUNTER 2023-12-31 12:17 | Emergency (ER) | payer MEDICARE, BC ==
[2023-12-31 12:40] LABS: APPEARANCE,URINE CLOUDY; GLUCOSE,URINE NEGATIVE (NEGATIVE); KETONES,URINE NEGATIVE (NEGATIVE); LEUKOCYTE ESTERASE,URINE TRACE (NEGATIVE); NITRITE,URINE NEGATIVE (NEGATIVE); OCCULT BLOOD,URINE LARGE (NEGATIVE); PH,URINE 6.5 (5.0-8.0); PROTEIN,URINE >=300 mg/dL (NEGATIVE); UROBILINOGEN,URINE 0.2 EU/dL (<2.0)
[2023-12-31] MEDS ORDERED: Sodium Chloride 0.9% 2.5 ML Syringe FLUSH PRN (12:43)
[2023-12-31] MEDS ORDERED: Sodium Chloride 0.9% 10 ML Syringe FLUSH PRN (12:43)
[2023-12-31 12:46] LABS: BILIRUBIN,URINE SMALL (NEGATIVE)
[2023-12-31 12:52] LABS: BACTERIA,URINE FEW (NEGATIVE); COLOR,URINE DARK YELLOW; EPITHELIAL CELLS,URINE RARE (NONE-FEW); RBC,URINE TOO NUMEROUS TO CT (0-2/HPF)
[2023-12-31] MEDS: Sodium Chloride 0.9% 500 ML IV SCH (13:08)
[2023-12-31 13:11] LABS: BASOPHILS ABSOLUTE AUTO 0.02 K/uL (0.00-0.20); BASOPHILS PERCENT AUTO 0.3 % (0.0-1.0); EOSINOPHILS ABSOLUTE AUTO 0.11 K/uL (0.00-0.45); EOSINOPHILS PERCENT AUTO 1.6 % (0.0-6.0); HEMOGLOBIN 12.3 g/dL (12.0-16.0); IMMATURE GRAN ABSOLUTE AUTO 0.01 K/uL (0.00-0.05); IMMATURE GRAN PERCENT AUTO 0.1 % (0.0-0.4); LYMPHOCYTES ABSOLUTE AUTO 1.51 K/uL (1.00-4.80); LYMPHOCYTES PERCENT AUTO 21.6 % (24.0-44.0); MEAN CORPUSCULAR HEMOGLOBIN 30.5 pg (28.0-32.0); MEAN CORPUSCULAR HGB CONC 34.2 g/dL (32.0-36.0); MEAN CORPUSCULAR VOLUME 89.3 fL (83.0-99.0); MEAN PLATELET VOLUME 8.6 fL (9.4-12.3); MONOCYTES ABSOLUTE AUTO 0.37 K/uL (0.00-0.80); MONOCYTES PERCENT AUTO 5.3 % (0.0-8.0); NEUTROPHILS ABSOLUTE AUTO 4.97 K/uL (1.80-7.70); NEUTROPHILS PERCENT AUTO 71.1 % (41.0-71.0); PLATELET COUNT,PLT 247 K/uL (150-400); RED BLOOD CELL COUNT 4.03 M/uL (4.10-5.30); WHITE BLOOD CELL COUNT,WBC 6.99 K/uL (3.9-11.3)
[2023-12-31] MEDS: Phenazopyridine 200 MG Tab PO ONE (13:28)
[2023-12-31] MEDS: cefTRIAXone 1 GM in Sodium Chloride 0.9% 50 ML IV ONE (13:28)
[2023-12-31 13:32] LABS: A/G RATIO 1.1 (0.9-1.6); ALBUMIN 3.5 g/dL (3.4-5.0); BILIRUBIN TOTAL 0.9 mg/dL (0.2-1.0); CALCIUM 9.5 mg/dL (8.5-10.1); CARBON DIOXIDE,CO2 28.4 mmol/L (21.0-32.0); CREATININE 0.8 mg/dL (0.6-1.0); EST CRCL DRUG DOSING (CG) 52.15 mL/min; POTASSIUM,K 4.2 mmol/L (3.5-5.1); PROTEIN TOTAL,TP 6.6 g/dL (6.4-8.2)
== END 2023-12-31 13:55 | disposition home or self-care (01) ==
LOC: MW.ED 12:17
DX: N39.0 Urinary tract infection, site not specified (principal); I10 Essential (primary) hypertension; E78.00 Pure hypercholesterolemia, unspecified; I25.2 Old myocardial infarction; Z95.5 Presence of coronary angioplasty implant and graft; K21.9 Gastro-esophageal reflux disease without esophagitis; Z90.710 Acquired absence of both cervix and uterus; Z88.8 Allergy status to other drugs, medicaments and biological substances; Z79.51 Long term (current) use of inhaled steroids; Z79.899 Other long term (current) drug therapy
CPT/HCPCS: 36415; 80053; 81001; 85025; 87086; 96365; 99283; A9270; J0696; J3490; J7040

== ENCOUNTER 2024-05-03 11:09 | Emergency (ER) | payer MEDICARE, BC ==
[2024-05-03 12:07] LABS: BASOPHILS ABSOLUTE AUTO 0.01 K/uL (0.00-0.20); BASOPHILS PERCENT AUTO 0.3 % (0.0-1.0); EOSINOPHILS ABSOLUTE AUTO 0.08 K/uL (0.00-0.45); EOSINOPHILS PERCENT AUTO 2.4 % (0.0-6.0); HEMATOCRIT 39.7 % (37.0-47.0); HEMOGLOBIN 13.5 g/dL (12.0-16.0); LYMPHOCYTES ABSOLUTE AUTO 1.37 K/uL (1.00-4.80); LYMPHOCYTES PERCENT AUTO 40.8 % (24.0-44.0); MEAN CORPUSCULAR HEMOGLOBIN 30.4 pg (28.0-32.0); MEAN CORPUSCULAR VOLUME 89.4 fL (83.0-99.0); MEAN PLATELET VOLUME 9.1 fL (9.4-12.3); MONOCYTES ABSOLUTE AUTO 0.26 K/uL (0.00-0.80); MONOCYTES PERCENT AUTO 7.7 % (0.0-8.0); NEUTROPHILS ABSOLUTE AUTO 1.64 K/uL (1.80-7.70); NEUTROPHILS PERCENT AUTO 48.8 % (41.0-71.0); PLATELET COUNT,PLT 204 K/uL (150-400); RED BLOOD CELL COUNT 4.44 M/uL (4.10-5.30); WHITE BLOOD CELL COUNT,WBC 3.36 K/uL (3.9-11.3)
[2024-05-03 12:49] LABS: A/G RATIO 0.9 (0.9-1.6); ALBUMIN 3.6 g/dL (3.4-5.0); BILIRUBIN TOTAL 0.4 mg/dL (0.2-1.0); CALCIUM 9.5 mg/dL (8.5-10.1); CARBON DIOXIDE,CO2 26.3 mmol/L (21.0-32.0); CREATININE 0.9 mg/dL (0.6-1.0); POTASSIUM,K 3.4 mmol/L (3.5-5.1); PROTEIN TOTAL,TP 7.6 g/dL (6.4-8.2)
[2024-05-03 14:44] LABS: APPEARANCE,URINE CLEAR; BILIRUBIN,URINE NEGATIVE (NEGATIVE); COLOR,URINE YELLOW; GLUCOSE,URINE NEGATIVE (NEGATIVE); KETONES,URINE 15 mg/dL (NEGATIVE); LEUKOCYTE ESTERASE,URINE TRACE (NEGATIVE); NITRITE,URINE NEGATIVE (NEGATIVE); OCCULT BLOOD,URINE TRACE-INTACT (NEGATIVE); PROTEIN,URINE NEGATIVE (NEGATIVE); UROBILINOGEN,URINE 0.2 EU/dL (<2.0)
[2024-05-03 14:52] LABS: BACTERIA,URINE RARE (NEGATIVE); EPITHELIAL CELLS,URINE FEW (NONE-FEW); MUCUS,URINE LIGHT (NONE-MOD); RBC,URINE 0-1 (0-2/HPF); WBC,URINE 0-3 (0-5/HPF)
== END 2024-05-03 15:40 | disposition home or self-care (01) ==
LOC: MW.ED 11:09
DX: R39.15 Urgency of urination (principal); D72.819 Decreased white blood cell count, unspecified; I10 Essential (primary) hypertension; I25.2 Old myocardial infarction; J44.9 Chronic obstructive pulmonary disease, unspecified; K21.9 Gastro-esophageal reflux disease without esophagitis; Z90.710 Acquired absence of both cervix and uterus; Z87.891 Personal history of nicotine dependence; Z88.8 Allergy status to other drugs, medicaments and biological substances; Z79.51 Long term (current) use of inhaled steroids; Z79.82 Long term (current) use of aspirin; Z79.899 Other long term (current) drug therapy; Z75.8 Other problems related to medical facilities and other health care
CPT/HCPCS: 36415; 70450; 70450-26; 80053; 81001; 83690; 85025; 99283; 99285